=== PATIENT | female | born 1995 | race Caucasian/White ===

== ENCOUNTER 2020-12-30 15:54 | Emergency (ER) | payer SELFPAY ==
[~2020-12-30] VITALS: Ht 165.1 cm; Wt 47.6 kg
[2020-12-30] MEDS ORDERED: ONDANSETRON HCL/PF 4 MG/2 ML VIAL ONE (16:46)
[2020-12-30] MEDS ORDERED: LORAZEPAM INJ 2 MG/ML VIAL ONE (16:47)
[2020-12-30 16:59] LABS: BASOPHILS # (AUTO) 0.1 /CMM (0.0-0.2); BASOPHILS % (AUTO) 0.7 % (0.0-2.0); EOSINOPHILS % (AUTO) 0.6 % (0.0-6.0); HEMATOCRIT 41 % (33-45); HEMOGLOBIN 14.1 g/dL (11.5-14.8); LYMPHOCYTES # (AUTO) 1.6 /CMM (0.8-4.8); LYMPHOCYTES % (AUTO) 19.4 % (20.0-44.0); MEAN CORPUSCULAR HGB CONC 34 g/dl (31.0-36.0); MEAN CORPUSCULAR VOLUME 97 fL (82-100); MONOCYTES # (AUTO) 0.6 /CMM (0.1-1.30); MONOCYTES % (AUTO) 7.8 % (2.0-12.0); NEUTROPHILS # (AUTO) 5.9 /CMM (1.8-8.9); NEUTROPHILS % (AUTO) 71.5 % (43.0-81.0); PLATELET COUNT (AUTO) 357 /CMM (150-450); RED BLOOD CELL COUNT(AUTO) 4.27 MIL/uL (4.0-5.2); WHITE BLOOD COUNT (AUTO) 8.3 K/uL (4.3-11.0)
[2020-12-30] MEDS ORDERED: IV NS 0.9% 1,000 ML BAG IV ONE (17:00)
[2020-12-30] MEDS ORDERED: LORAZEPAM INJ 2 MG/ML VIAL IV ONE (17:00)
[2020-12-30] MEDS ORDERED: ONDANSETRON HCL/PF 4 MG/2 ML VIAL IVP ONE (17:00)
[2020-12-30 17:06] LABS: CALCIUM, SERUM 9.5 mg/dL (8.5-10.1); CREATININE 0.8 mg/dL (0.6-1.3); POTASSIUM 3.5 mmol/L (3.5-5.1)
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
[2020-12-30] MEDS ORDERED: LORA-259 PO (17:58)
[2020-12-30] MEDS ORDERED: ONDA4TAB5 PO (17:58)
--- NOTE | 2020-12-30 18:15 | NUR ---
Patient discharged to home in stable condition. Written and verbal after care instructions given. Patient verbalizes understanding of instruction. IV removed. Catheter intact and site benign. Pressure and 4x4 applied to site. No bleeding noted.
[2020-12-30 18:16] VITALS: BP 130/80
--- NOTE | 2020-12-30 18:16 | NUR ---
[facility] OFFICERS [facility] #[id number] AND #[id number] OF [facility] UN[facility] X84 AT BEDSIDE FOR INVESTIGATION
== END 2020-12-30 18:16 | disposition home or self-care (01) ==
LOC: ER 16:00
DX: F10.239 Alcohol dependence with withdrawal, unspecified (principal); F41.9 Anxiety disorder, unspecified; F32.9 Major depressive disorder, single episode, unspecified; Z88.8 Allergy status to other drugs, medicaments and biological substances; Z79.899 Other long term (current) drug therapy; Y90.9 Presence of alcohol in blood, level not specified
CPT/HCPCS: 36415; 80048; 85025; 96361; 96374; 96375; 99284; J2060; J2405; J7030

== ENCOUNTER 2021-03-18 08:26 | Emergency (ER) | payer OTHER ==
[~2021-03-18] VITALS: Ht 165.1 cm; Wt 63.5 kg
[~2021-03-18 08:26] MED LIST: LORA-259 PO; ONDA4TAB5 PO
--- NOTE | 2021-03-18 08:37 | NUR ---
DR CORTES AT BEDSIDE FOR EVAL.
[2021-03-18] MEDS ORDERED: CHLO25CA22 PO (08:39)
[2021-03-18] MEDS ORDERED: ONDA4TAB5 PO (08:39)
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
[2021-03-18 08:49] VITALS: BP 124/79
== END 2021-03-18 08:50 | disposition home or self-care (01) ==
LOC: ER 08:30
DX: F10.239 Alcohol dependence with withdrawal, unspecified (principal); F41.9 Anxiety disorder, unspecified; F32.9 Major depressive disorder, single episode, unspecified; Z88.8 Allergy status to other drugs, medicaments and biological substances; Z79.899 Other long term (current) drug therapy; Y90.9 Presence of alcohol in blood, level not specified

== ENCOUNTER 2021-03-20 16:14 | Emergency (ER) | payer OTHER ==
[~2021-03-20] VITALS: Ht 154.9 cm; Wt 72.6 kg
[~2021-03-20 16:14] MED LIST changes: +CHLO25CA22 PO
[2021-03-20 16:21] VITALS: BP 131/81
[2021-03-20] MEDS ORDERED: LORAZEPAM 1 MG TABLET ONE (16:37)
[2021-03-20] MEDS ORDERED: LORA-259 PO (16:37)
[2021-03-20] MEDS ORDERED: LORAZEPAM 1 MG TABLET PO ONE (17:00)
== END 2021-03-20 16:50 | disposition home or self-care (01) ==
LOC: ER 16:15
DX: F10.239 Alcohol dependence with withdrawal, unspecified (principal); R25.3 Fasciculation; F41.9 Anxiety disorder, unspecified; F32.9 Major depressive disorder, single episode, unspecified; Z88.8 Allergy status to other drugs, medicaments and biological substances; Z79.899 Other long term (current) drug therapy; Y90.9 Presence of alcohol in blood, level not specified

== ENCOUNTER 2021-06-29 05:32 | Emergency (ER) | payer MEDICAID, OTHER ==
[~2021-06-29] VITALS: Ht 152.4 cm; Wt 52.6 kg
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
[2021-06-29] MEDS ORDERED: ONDANSETRON HCL/PF 4 MG/2 ML VIAL ONE (06:26)
[2021-06-29] MEDS ORDERED: IV NS 0.9% 1,000 ML BAG IV ONE ×2 (06:30→08:30)
[2021-06-29] MEDS ORDERED: ONDANSETRON HCL/PF 4 MG/2 ML VIAL IVP ONE (06:30)
--- NOTE | 2021-06-29 06:40 | NUR ---
URINE COLLECTED AND SENT TO LAB
[2021-06-29 07:42] LABS: BASOPHILS # (AUTO) 0.1 K/uL (0.0-0.2); BASOPHILS % (AUTO) 0.4 % (0.0-2.0); HEMATOCRIT 48 % (33-45); HEMOGLOBIN 15.5 g/dL (11.5-14.8); LYMPHOCYTES # (AUTO) 0.5 K/uL (0.8-4.8); LYMPHOCYTES % (AUTO) 2.5 % (20.0-44.0); MEAN CORPUSCULAR HGB CONC 32 g/dl (31.0-36.0); MEAN CORPUSCULAR VOLUME 106 fL (82-100); MONOCYTES # (AUTO) 0.7 K/uL (0.1-1.30); MONOCYTES % (AUTO) 3.7 % (2.0-12.0); NEUTROPHILS % (AUTO) 93.4 % (43.0-81.0); PLATELET COUNT (AUTO) 330 K/uL (150-450); RED BLOOD CELL COUNT(AUTO) 4.55 MIL/uL (4.0-5.2); WHITE BLOOD COUNT (AUTO) 19.3 K/uL (4.3-11.0)
[2021-06-29 07:54] LABS: BILIRUBIN,URINE NEGATIVE (NEGATIVE); COLOR,URINE YELLOW (YELLOW); LEUKOCYTE ESTERASE ,URINE NEGATIVE (NEGATIVE); NITRITE, URINE NEGATIVE (NEGATIVE); PH,URINE 5.5 (5.0-8.0); PROTEIN,URINE 100 mg/dl (NEGATIVE); UGLUCOSE NEGATIVE (NEGATIVE); UROBILINOGEN,URINE 0.2 EU/dL (0.2)
--- NOTE | 2021-06-29 08:00 | NUR ---
THE PATIENT ALERT AND ORIENTED X4. DENIES PAIN. IN ROOM AIR AND DENIES SOB. RESPIRATION REGULAR AND UNLABORED. THE PATIENT NOTED TO HAVE STABLE GAIT. ATTACHED TO THE MONITOR.
[2021-06-29 08:39] LABS: ALBUMIN 4.5 g/dL (3.4-5.0); BILIRUBIN,DIRECT 0.8 mg/dL (0.0-0.2); BILIRUBIN,TOTAL 1.2 mg/dL (0.2-1.0); CALCIUM, SERUM 9.6 mg/dL (8.5-10.1); CREATININE 1.2 mg/dL (0.6-1.3); POTASSIUM 4.8 mmol/L (3.5-5.1); TOTAL PROTEIN, SERUM 9.1 g/dL (6.4-8.2)
[2021-06-29] MEDS ORDERED: IV NS 0.9% 250 ML IV ONE (08:43)
[2021-06-29] MEDS ORDERED: CT SWABBABLE VALVE TRANS SET 1 EA INFUS.SET MC ONE (08:43)
[2021-06-29] MEDS ORDERED: IOHEXOL-300 100 ML VIAL IV ONE (08:43)
[2021-06-29 08:50] VITALS: BP 131/84
[2021-06-29 09:21] LABS: BACTERIA,URINE Rare /HPF (None Seen); SQUAMOUS EPITHELIAL CELL,UR Few /HPF (None Seen); WBC,URINE 0-2 /HPF (0-3)
--- NOTE | 2021-06-29 09:33 | NUR ---
Patient eloped from facility. Dr Huynh notified.
== END 2021-06-29 09:33 | disposition left against medical advice (07) ==
LOC: ER 05:36
DX: F10.139 Alcohol abuse with withdrawal, unspecified (principal); E87.2 Acidosis; B17.9 Acute viral hepatitis, unspecified; E86.0 Dehydration; F41.9 Anxiety disorder, unspecified; F32.9 Major depressive disorder, single episode, unspecified; Z88.8 Allergy status to other drugs, medicaments and biological substances; Z79.899 Other long term (current) drug therapy; Y90.6 Blood alcohol level of 120-199 mg/100 ml
CPT/HCPCS: 36415; 74177; 80048; 80076; 80307; 80320; 81001; 83690; 84703; 85025; 96361; 96374; 99285; J2405; J7030; J7050; Q9967; G0480

== ENCOUNTER 2021-11-19 09:05 | Emergency (ER) | payer MEDICAID, OTHER ==
[~2021-11-19] VITALS: Ht 154.9 cm; Wt 49.9 kg
--- NOTE | 2021-11-19 10:00 | NUR ---
DR CELIS AT BEDSIDE
[2021-11-19] MEDS ORDERED: ONDANSETRON 4 MG TAB.RAPDIS ONE ×2 (10:07→12:06)
[2021-11-19] MEDS ORDERED: LORAZEPAM 1 MG TABLET ONE (10:07)
[2021-11-19] MEDS: LORAZEPAM 1 MG TABLET PO ONE ×2 (10:10→12:11)
[2021-11-19] MEDS: ONDANSETRON 4 MG TAB.RAPDIS SL ONE ×2 (10:10→12:11)
--- NOTE | 2021-11-19 10:35 | NUR ---
URINE SAMPLE COLLECTED AND SENT TO LAB
[2021-11-19] MEDS ORDERED: LORAZEPAM 0.5 MG TABLET ONE (12:06)
[2021-11-19] MEDS ORDERED: CHLO25CA22 PO (12:29)
--- NOTE | 2021-11-19 12:34 | NUR ---
Patient discharged to home in stable condition. Written and verbal after care instructions given. Patient verbalizes understanding of instruction.
[2021-11-19 12:36] VITALS: BP 110/55
[2021-11-20] MEDS ORDERED: CHLO25CA22 PO (19:07)
== END 2021-11-19 12:34 | disposition home or self-care (01) ==
LOC: ER 09:05
DX: F10.139 Alcohol abuse with withdrawal, unspecified (principal); F41.9 Anxiety disorder, unspecified; F32.9 Major depressive disorder, single episode, unspecified; F12.90 Cannabis use, unspecified, uncomplicated; Z88.8 Allergy status to other drugs, medicaments and biological substances; Z79.899 Other long term (current) drug therapy; Y90.9 Presence of alcohol in blood, level not specified
CPT/HCPCS: 84703; 99284; Q0162 ×2

== ENCOUNTER 2021-11-29 10:14 | Emergency (ER) | payer MEDICAID ==
[~2021-11-29] VITALS: Ht 152.4 cm; Wt 52.2 kg
[2021-11-29] MEDS ORDERED: LORAZEPAM INJ 2 MG/ML VIAL IV ONE (10:30)
[2021-11-29] MEDS ORDERED: ONDANSETRON HCL/PF 4 MG/2 ML VIAL IVP ONE (10:30)
[2021-11-29] MEDS ORDERED: IV NS 0.9% 1,000 ML BAG IV ONE (10:30)
[2021-11-29] MEDS ORDERED: methylPREDNISolone SOD SUCC 125 MG/2ML VIAL IV ONE (10:30)
[2021-11-29] MEDS ORDERED: EPINEPHRINE (1:1000) MDV 30 MG/30ML VIAL SUBCUT ONE (10:30)
[2021-11-29] MEDS ORDERED: FAMOTIDINE/PF INJ 20 MG/2 ML VIAL IV ONE ×2 (10:30→10:33)
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
[2021-11-29] MEDS ORDERED: EPINEPHRINE (1:1000) 1 MG/ML AMPUL ONE (10:32)
[2021-11-29] MEDS ORDERED: methylPREDNISolone SOD SUCC 125 MG/2ML VIAL ONE (10:32)
[2021-11-29] MEDS ORDERED: ONDANSETRON HCL/PF 4 MG/2 ML VIAL ONE (10:32)
[2021-11-29] MEDS ORDERED: LORAZEPAM INJ 2 MG/ML VIAL ONE (10:34)
--- NOTE | 2021-11-29 10:36 | NUR ---
MEDS GIVEN PER MD ORDERS. PT STATES SHE FEELS LIKE HER THROAT IS CLOSING UP ALTHOUGH SHE STATES SHE CAN BREATHE WITHOUT DIFFICULTY. IV FLUIDS INFUSING. PER PT REQUEST, OK'D BY MD PT GIVEN WATER, APPEARS TO HAVE NO DIFFICULTY DRINKING WATER. WILL CONTINUE TO MONITOR.
[2021-11-29 10:50] LABS: BASOPHILS % (AUTO) 0.1 % (0.0-2.0); EOSINOPHILS % (AUTO) 0.3 % (0.0-6.0); HEMATOCRIT 44 % (33-45); HEMOGLOBIN 14.9 g/dL (11.5-14.8); LYMPHOCYTES % (AUTO) 7.4 % (20.0-44.0); MEAN CORPUSCULAR HGB CONC 34 g/dl (31.0-36.0); MEAN CORPUSCULAR VOLUME 97 fL (82-100); MONOCYTES # (AUTO) 0.4 K/uL (0.1-1.30); MONOCYTES % (AUTO) 2.6 % (2.0-12.0); NEUTROPHILS # (AUTO) 12.3 K/uL (1.8-8.9); NEUTROPHILS % (AUTO) 89.6 % (43.0-81.0); PLATELET COUNT (AUTO) 337 K/uL (150-450); RED BLOOD CELL COUNT(AUTO) 4.51 MIL/uL (4.0-5.2); WHITE BLOOD COUNT (AUTO) 13.7 K/uL (4.3-11.0)
[2021-11-29 11:04] LABS: ALBUMIN 3.5 g/dL (3.4-5.0); BILIRUBIN,DIRECT 0.3 mg/dL (0.0-0.2); CALCIUM, SERUM 8.9 mg/dL (8.5-10.1); CREATININE 0.8 mg/dL (0.6-1.3); POTASSIUM 3.3 mmol/L (3.5-5.1); TOTAL PROTEIN, SERUM 7.2 g/dL (6.4-8.2)
--- NOTE | 2021-11-29 11:06 | NUR ---
POST MEDICATION ASSESSMENT. PT APPEARS TO BE CALM, RESTING, STATES SHE ALREADY FEELS A LITTLE BETTER, STATES HER AIRWAY IS OPEN AND DOESN'T FEEL THOUGH IT IS CLOSING ANYMORE. WILL CONTINUE TO MONITOR.
[2021-11-29] MEDS ORDERED: POTASSIUM CHLORIDE 20 MEQ TAB.PRT.SR PO ONE ×2 (11:19→11:30)
[2021-11-29] MEDS ORDERED: EPIN0.3P3 IM (11:34)
[2021-11-29] MEDS ORDERED: PRED20TA PO (11:34)
[2021-11-29] MEDS ORDERED: FAMO-131 PO (11:34)
[2021-11-29] MEDS ORDERED: CETI-90 PO (11:34)
[2021-11-29 11:55] VITALS: BP 118/67
== END 2021-11-29 12:14 | disposition home or self-care (01) ==
LOC: ER 10:25
DX: T78.40XA Allergy, unspecified, initial encounter (principal); L50.0 Allergic urticaria; R25.1 Tremor, unspecified; D72.829 Elevated white blood cell count, unspecified; E87.6 Hypokalemia; F32.9 Major depressive disorder, single episode, unspecified; F41.9 Anxiety disorder, unspecified; Z79.52 Long term (current) use of systemic steroids; Z79.899 Other long term (current) drug therapy; X58.XXXA Exposure to other specified factors, initial encounter
CPT/HCPCS: 36415; 80048; 80076; 85025; 96361; 96372; 96374; 96375; 99284; J0171 ×2; J2060; J2405; J2930; J3490; J7030

== ENCOUNTER 2022-01-14 20:56 | Emergency (ER) | payer MEDICAID, OTHER ==
[~2022-01-14] VITALS: Ht 152.4 cm; Wt 52.2 kg
[~2022-01-14 20:56] MED LIST changes: +CETI-90 PO; +EPIN0.3P3 IM; +FAMO-131 PO; +PRED20TA PO
[2022-01-14 21:50] VITALS: BP 111/68
--- NOTE | 2022-01-14 21:50 | NUR ---
PT BIBSELF C/O ANXIETY ATTACK & ETOH WITHDRAWAL. LAST DRINK WAS 5 DAYS AGO.PT AWAKE AND ALERT, BREATHING EVEN AND UNLABORED, AMBULATORY WITH STEADY GAIT. V/S ASSESSED AND ALL WNL.
[2022-01-14] MEDS ORDERED: ONDANSETRON 4 MG TAB.RAPDIS ONE ×2 (21:58→22:06)
[2022-01-14] MEDS ORDERED: LORAZEPAM 1 MG TABLET ONE ×2 (21:58→22:05)
[2022-01-14] MEDS ORDERED: LORAZEPAM 1 MG TABLET PO ONE (22:00)
[2022-01-14] MEDS ORDERED: ONDANSETRON 4 MG TAB.RAPDIS SL ONE (22:00)
== END 2022-01-14 22:37 | disposition home or self-care (01) ==
LOC: ER 21:04
DX: F41.9 Anxiety disorder, unspecified (principal); F10.139 Alcohol abuse with withdrawal, unspecified; F32.A Depression, unspecified; Z88.8 Allergy status to other drugs, medicaments and biological substances; Z79.52 Long term (current) use of systemic steroids; Z79.899 Other long term (current) drug therapy; Y90.9 Presence of alcohol in blood, level not specified
CPT/HCPCS: 99283; Q0162

== ENCOUNTER 2022-03-18 04:18 | Emergency (ER) | payer OTHER ==
[~2022-03-18] VITALS: Ht 167.6 cm; Wt 66.2 kg
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
--- NOTE | 2022-03-18 04:39 | NUR ---
waiver signed by patient and placed in pt chart
--- NOTE | 2022-03-18 04:50 | NUR ---
PT TAKEN TO CT SCAN
[2022-03-18 07:24] VITALS: BP 118/64
--- NOTE | 2022-03-18 07:24 | NUR ---
Patient discharged to home in stable condition. Written and verbal after care instructions given. Patient verbalizes understanding of instruction.
== END 2022-03-18 07:28 | disposition home or self-care (01) ==
LOC: ER 04:23
DX: S00.83XA Contusion of other part of head, initial encounter (principal); F19.10 Other psychoactive substance abuse, uncomplicated; F41.9 Anxiety disorder, unspecified; F32.A Depression, unspecified; Z88.8 Allergy status to other drugs, medicaments and biological substances; Z79.899 Other long term (current) drug therapy; Y04.2XXA Assault by strike against or bumped into by another person, initial encounter; Y93.89 Activity, other specified; Y92.89 Other specified places as the place of occurrence of the external cause; Y99.8 Other external cause status
CPT/HCPCS: 70450-TC

== ENCOUNTER 2022-04-07 10:33 | Emergency (ER) | payer OTHER ==
[~2022-04-07] VITALS: Ht 152.4 cm; Wt 49.9 kg
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
--- NOTE | 2022-04-07 11:14 | NUR ---
CALLED [employer] NON-EMERGENT LINE AND NOTIFIED BUSINESS MANAGEMENT MANAGER [phone] ABOUT THE PT STATUS. AND WAS NOTIFIED THAT OFFICERS ARE BEING DISPATCHED TO COME
[2022-04-07] MEDS ORDERED: KETOROLAC TROMETHAMINE INJ 30 MG/ML VIAL IM ONE (11:30)
[2022-04-07] MEDS ORDERED: KETOROLAC TROMETHAMINE INJ 30 MG/ML VIAL ONE (11:32)
--- NOTE | 2022-04-07 11:32 | NUR ---
[employer] OFFICERS AT BEDSIDE: OFFICER PETER #[id number] AND OFFICER THUAN #[id number]
--- NOTE | 2022-04-07 11:34 | NUR ---
[facility] OFFICER PETER AT BEDSIDE FOR INVESTIGATION
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
[2022-04-07] MEDS ORDERED: HYDR-4209 PO (12:22)
[2022-04-07] MEDS ORDERED: IBUP-1957 PO (12:22)
[2022-04-07] MEDS ORDERED: LORAZEPAM 0.5 MG TABLET ONE (12:28)
[2022-04-07] MEDS ORDERED: LORAZEPAM 0.5 MG TABLET PO ONE (12:30)
[2022-04-07 13:03] VITALS: BP 102/71
--- NOTE | 2022-04-07 13:03 | NUR ---
Patient discharged to home in stable condition. Written and verbal after care instructions given. Patient verbalizes understanding of instruction.
== END 2022-04-07 13:04 | disposition home or self-care (01) ==
LOC: ER 10:41
DX: S00.12XA Contusion of left eyelid and periocular area, initial encounter (principal); F41.9 Anxiety disorder, unspecified; F32.A Depression, unspecified; Z88.8 Allergy status to other drugs, medicaments and biological substances; Z79.899 Other long term (current) drug therapy; Y04.2XXA Assault by strike against or bumped into by another person, initial encounter; Y93.89 Activity, other specified; Y92.89 Other specified places as the place of occurrence of the external cause; Y99.8 Other external cause status
CPT/HCPCS: 70450; 70486; 96372; 99284; J1885

== ENCOUNTER 2022-04-24 10:07 | Emergency (ER) | payer OTHER ==
[~2022-04-24] VITALS: Ht 160 cm; Wt 49.9 kg
[~2022-04-24 10:07] MED LIST changes: +HYDR-4209 PO; +IBUP-1957 PO
--- NOTE | 2022-04-24 10:28 | NUR ---
BIBS. PT STATED THAT SHE HAD ALCOHOL 2 DAYS AGO, COMPLAINS OF SHAKING, CHILLS, NAUSEA/VOMITING, AND BEING ANXIOUS. PT IS A/O X4, AMBULATORY W/ STEADY GAIT. TO ER BED 15.
--- NOTE | 2022-04-24 10:40 | NUR ---
WARM BLANKET PROVIDED TO PT.
[2022-04-24] MEDS ORDERED: diphenhydrAMINE HCL 50 MG/ML VIAL ONE (11:26)
[2022-04-24] MEDS ORDERED: LORAZEPAM INJ 2 MG/ML VIAL ONE (11:26)
[2022-04-24] MEDS ORDERED: ONDANSETRON HCL/PF 4 MG/2 ML VIAL ONE (11:28)
[2022-04-24] MEDS ORDERED: ONDANSETRON HCL/PF - ER 4 MG/2 ML VIAL IV ONE (11:30)
[2022-04-24] MEDS ORDERED: LORAZEPAM INJ 2 MG/ML VIAL IV ONE (11:30)
[2022-04-24] MEDS ORDERED: IV NS 0.9% 1,000 ML BAG IV ONE (11:30)
[2022-04-24] MEDS ORDERED: diphenhydrAMINE HCL 50 MG/ML VIAL IV ONE (11:30)
--- NOTE | 2022-04-24 11:30 | NUR ---
IV LINE ESTABLISHED ON LAC #18, BLOOD DRAWN AND SENT TO LAB.
[2022-04-24 11:42] LABS: BASOPHILS % (AUTO) 0.4 % (0.0-2.0); EOSINOPHILS % (AUTO) 0.5 % (0.0-6.0); HEMATOCRIT 41 % (33-45); HEMOGLOBIN 13.3 g/dL (11.5-14.8); LYMPHOCYTES # (AUTO) 1.6 K/uL (0.8-4.8); MEAN CORPUSCULAR HGB CONC 33 g/dl (31.0-36.0); MEAN CORPUSCULAR VOLUME 97 fL (82-100); MONOCYTES # (AUTO) 0.5 K/uL (0.1-1.30); MONOCYTES % (AUTO) 6.5 % (2.0-12.0); NEUTROPHILS % (AUTO) 70.6 % (43.0-81.0); PLATELET COUNT (AUTO) 395 K/uL (150-450); RED BLOOD CELL COUNT(AUTO) 4.18 MIL/uL (4.0-5.2); WHITE BLOOD COUNT (AUTO) 7.1 K/uL (4.3-11.0)
[2022-04-24 12:36] LABS: CALCIUM, SERUM 8.9 mg/dL (8.5-10.1); CREATININE 0.8 mg/dL (0.6-1.3); POTASSIUM 3.2 mmol/L (3.5-5.1)
[2022-04-24 12:42] LABS: ALBUMIN 3.2 g/dL (3.4-5.0); BILIRUBIN,DIRECT 0.1 mg/dL (0.0-0.2); BILIRUBIN,TOTAL 0.3 mg/dL (0.2-1.0); TOTAL PROTEIN, SERUM 7.2 g/dL (6.4-8.2)
[2022-04-24 15:46] VITALS: BP 119/74
--- NOTE | 2022-04-24 15:46 | NUR ---
PT REFUSED TO SIGNED DISCHARGE PAPER. PT WAS DISCHARGED IN STABLE CONDITION AND ABLE TO WALK OUT OF THE FACILITY ON HER OWN.
== END 2022-04-24 15:47 | disposition home or self-care (01) ==
LOC: ER 10:09
DX: F10.239 Alcohol dependence with withdrawal, unspecified (principal); F41.9 Anxiety disorder, unspecified; F32.A Depression, unspecified; Z88.8 Allergy status to other drugs, medicaments and biological substances; Z79.899 Other long term (current) drug therapy; Y90.9 Presence of alcohol in blood, level not specified
CPT/HCPCS: 36415; 80048; 80076; 83690; 85025; 96361; 96374; 96375; 99284; J1200; J2060; J2405; J7030

== ENCOUNTER 2022-06-01 20:10 | Emergency (ER) | payer OTHER ==
[~2022-06-01] VITALS: Ht 154.9 cm; Wt 50.8 kg
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
[2022-06-01] MEDS ORDERED: LORA-259 PO (20:56)
--- NOTE | 2022-06-01 21:18 | NUR ---
pt discharged in stable condition. discharge paper work given
[2022-06-01 21:20] VITALS: BP 110/62
== END 2022-06-01 21:20 | disposition home or self-care (01) ==
LOC: ER 20:51
DX: F41.9 Anxiety disorder, unspecified (principal); R20.2 Paresthesia of skin; F32.A Depression, unspecified; Z88.8 Allergy status to other drugs, medicaments and biological substances

== ENCOUNTER 2022-08-07 10:08 | Emergency (ER) | payer OTHER ==
[~2022-08-07] VITALS: Ht 154.9 cm; Wt 49.9 kg
[2022-08-07 12:09] LABS: BASOPHILS % (AUTO) 0.2 % (0.0-2.0); EOSINOPHILS % (AUTO) 0.1 % (0.0-6.0); HEMATOCRIT 45 % (33-45); HEMOGLOBIN 14.6 g/dL (11.5-14.8); LYMPHOCYTES # (AUTO) 1.1 K/uL (0.8-4.8); LYMPHOCYTES % (AUTO) 5.5 % (20.0-44.0); MEAN CORPUSCULAR HGB CONC 32 g/dl (31.0-36.0); MEAN CORPUSCULAR VOLUME 101 fL (82-100); MONOCYTES # (AUTO) 1.3 K/uL (0.1-1.30); MONOCYTES % (AUTO) 6.9 % (2.0-12.0); NEUTROPHILS # (AUTO) 16.7 K/uL (1.8-8.9); NEUTROPHILS % (AUTO) 87.3 % (43.0-81.0); PLATELET COUNT (AUTO) 388 K/uL (150-450); RED BLOOD CELL COUNT(AUTO) 4.45 MIL/uL (4.0-5.2); WHITE BLOOD COUNT (AUTO) 19.1 K/uL (4.3-11.0)
[2022-08-07 12:16] LABS: CALCIUM, SERUM 10.6 mg/dL (8.5-10.1); CREATININE 1.3 mg/dL (0.6-1.3); POTASSIUM 3.7 mmol/L (3.5-5.1)
[2022-08-07 12:22] LABS: ALBUMIN 4.4 g/dL (3.4-5.0); BILIRUBIN,DIRECT 0.5 mg/dL (0.0-0.2); BILIRUBIN,TOTAL 2.5 mg/dL (0.2-1.0); TOTAL PROTEIN, SERUM 9.2 g/dL (6.4-8.2)
[2022-08-07] MEDS ORDERED: ONDANSETRON HCL/PF 4 MG/2 ML VIAL ONE (12:29)
[2022-08-07] MEDS ORDERED: ONDANSETRON HCL/PF 4 MG/2 ML VIAL IV ONE (12:30)
[2022-08-07] MEDS ORDERED: IV NS 0.9% 1,000 ML IV ONE (12:30)
[2022-08-07] MEDS ORDERED: LORAZEPAM INJ 2 MG/ML VIAL IV ONE (12:30)
[2022-08-07] MEDS ORDERED: LORAZEPAM INJ 2 MG/ML VIAL ONE (12:36)
--- NOTE | 2022-08-07 12:40 | NUR ---
safely assisted pt to bed 2
--- NOTE | 2022-08-07 12:45 | NUR ---
IV line started. hooked to monitor
--- NOTE | 2022-08-07 12:48 | NUR ---
medications given as ordered
--- NOTE | 2022-08-07 12:56 | NUR ---
Derrick chandler in [facility] - 08/07/22 at 1257 by DAYA pt. transfered to bed 2
[2022-08-07] MEDS ORDERED: CHLO25CA22 PO (14:53)
[2022-08-07] MEDS ORDERED: ONDA4TAB5 PO (14:53)
--- NOTE | 2022-08-07 15:05 | NUR ---
IV removed. Catheter intact and site benign. Pressure and 4x4 applied to site. No bleeding noted.
--- NOTE | 2022-08-07 15:24 | NUR ---
ICE WATER PROVIDED TO PT REQUESTED; NO COMPLAINT OF NAUSEA/VOMITING AT THIS TIME
[2022-08-07 15:58] VITALS: BP 122/74
--- NOTE | 2022-08-07 16:08 | NUR ---
Patient discharged to home in stable condition. Written and verbal after care instructions given. Patient verbalizes understanding of instruction.
== END 2022-08-07 16:09 | disposition home or self-care (01) ==
LOC: ER 10:34
DX: S00.01XA Abrasion of scalp, initial encounter (principal); F10.239 Alcohol dependence with withdrawal, unspecified; K70.9 Alcoholic liver disease, unspecified; D72.829 Elevated white blood cell count, unspecified; F41.9 Anxiety disorder, unspecified; F32.A Depression, unspecified; Z88.8 Allergy status to other drugs, medicaments and biological substances; Z79.899 Other long term (current) drug therapy; W01.0XXA Fall on same level from slipping, tripping and stumbling without subsequent striking against object, initial encounter; Y93.89 Activity, other specified; Y92.89 Other specified places as the place of occurrence of the external cause; Y99.8 Other external cause status; Y90.0 Blood alcohol level of less than 20 mg/100 ml
CPT/HCPCS: 99285; 96374; 96361; 96375; 93005; 71045; 85025; 80048; 80076; 36415; 82962; 80320; J2060; J2405; J7030; G0480

== ENCOUNTER 2022-08-11 19:21 | Inpatient (IN) | payer OTHER ==
[~2022-08-11] VITALS: Ht 152.4 cm; Wt 49.9 kg
[2022-08-11] MEDS ORDERED: LORAZEPAM INJ 2 MG/ML VIAL IV ONE (20:00)
[2022-08-11 20:07] LABS: BASOPHILS % (AUTO) 0.2 % (0.0-2.0); EOSINOPHILS % (AUTO) 0.1 % (0.0-6.0); HEMATOCRIT 37 % (33-45); HEMOGLOBIN 12.8 g/dL (11.5-14.8); LYMPHOCYTES % (AUTO) 8.8 % (20.0-44.0); MEAN CORPUSCULAR HGB CONC 34 g/dl (31.0-36.0); MEAN CORPUSCULAR VOLUME 97 fL (82-100); MONOCYTES # (AUTO) 0.5 K/uL (0.1-1.30); MONOCYTES % (AUTO) 4.1 % (2.0-12.0); NEUTROPHILS % (AUTO) 86.8 % (43.0-81.0); PLATELET COUNT (AUTO) 377 K/uL (150-450); RED BLOOD CELL COUNT(AUTO) 3.84 MIL/uL (4.0-5.2); WHITE BLOOD COUNT (AUTO) 11.5 K/uL (4.3-11.0)
--- NOTE | 2022-08-11 20:20 | NUR ---
SEEN BY DR PATEL AT BEDSIDE
[2022-08-11] MEDS ORDERED: LORAZEPAM INJ 2 MG/ML VIAL ONE (20:22)
[2022-08-11] MEDS ORDERED: MORPHINE SULFATE INJ 2 MG/ML DISP.SYRIN IV ONE ×2 (20:30→23:30)
--- NOTE | 2022-08-11 20:51 | NUR ---
IV CANNULA INSERTED ON LEFT AC G20. MEDS GIVEN
[2022-08-11 20:54] LABS: ALBUMIN 3.2 g/dL (3.4-5.0); BILIRUBIN,DIRECT 0.2 mg/dL (0.0-0.2); BILIRUBIN,TOTAL 0.4 mg/dL (0.2-1.0); CALCIUM, SERUM 8.5 mg/dL (8.5-10.1); CREATININE 0.7 mg/dL (0.6-1.3); POTASSIUM 3.5 mmol/L (3.5-5.1); TOTAL PROTEIN, SERUM 7.2 g/dL (6.4-8.2)
[2022-08-11] MEDS ORDERED: MORPHINE SULFATE INJ 4 MG/ML DISP.SYRIN ONE ×2 (20:54→23:53)
[2022-08-11] MEDS ORDERED: ONDANSETRON HCL/PF 4 MG/2 ML VIAL ONE (20:54)
[2022-08-11] MEDS ORDERED: ONDANSETRON HCL/PF 4 MG/2 ML VIAL IV ONE (21:00)
[2022-08-11] MEDS ORDERED: IV NS 0.9% 1,000 ML IV ONE (21:30)
--- NOTE | 2022-08-11 21:48 | NUR ---
DISCLAIMER SIGNED THAT SHE IS NOT . GLORIA OHARA MADE AWARE
--- NOTE | 2022-08-11 22:10 | NUR ---
BROUGHT TO CT DEPT
--- NOTE | 2022-08-11 23:09 | NUR ---
DR. JORGE GEORGE ON PHONE CALL WITH DR. ORTIZ RADIOLOGY
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
--- NOTE | 2022-08-12 00:10 | NUR ---
[employer] AT BEDSIDE
--- NOTE | 2022-08-12 01:25 | NUR ---
CLINICAL INFORMATION RELAYED TO MICHOACANO SHOP SUPERINTENDENT. PT IS AUTHORIZED TO STAY. VERBAL AUTH GIVEN
--- NOTE | 2022-08-12 01:25 | NUR ---
COVID SWAB DONE
--- NOTE | 2022-08-12 02:15 | NUR ---
URINE SPECIMEN SENT TO LAB
--- NOTE | 2022-08-12 02:17 | NUR ---
PT TAKEN TO CT VIA RADHA
--- NOTE | 2022-08-12 02:23 | NUR ---
BROUGHT PT TO CT DEPT
[2022-08-12 02:44] LABS: BILIRUBIN,URINE NEGATIVE (NEGATIVE); COLOR,URINE DARK YELLOW (YELLOW); LEUKOCYTE ESTERASE ,URINE NEGATIVE (NEGATIVE); NITRITE, URINE NEGATIVE (NEGATIVE); PROTEIN,URINE TRACE mg/dl (NEGATIVE); UGLUCOSE NEGATIVE (NEGATIVE); UROBILINOGEN,URINE 0.2 EU/dL (0.2)
--- NOTE | 2022-08-12 03:08 | NUR ---
PATIENT IS ASLEEP
[2022-08-12] MEDS ORDERED: MAGNESIUM HYDROXIDE 30 ML UDC PO PRN (03:30)
[2022-08-12] MEDS ORDERED: MAG HYDROX/AL HYDROX/SIMETH 30 ML UDC PO PRN (03:30)
[2022-08-12] MEDS ORDERED: Z GUARD REMEDY 4 OZ OINT TP PRN (03:30)
--- NOTE | 2022-08-12 04:45 | NUR ---
RELAYED TO EDDIE GOLDSTEIN THAT PT IS ASKING FOR ATIVAN TO HELP CONTROL HER ALCOHOL WITHDRAWAL. EXPLAINED TO PATIENT THAT ATIVAN USUALLY NOT GIVEN TO PATIENT WITH BRAIN BLEED COZ WE DONT KNOW IF A PATIENT BECAME DROWSY IS DUE TO MEDICATION OR THE BLEED. PER EDDIE GOLDSTEIN, ATIVAN WILL NOT BE ORDERED FOR PT CAUSE PATIENT IS UNDER MONITORING.
[2022-08-12 05:50] LABS: BASOPHILS % (AUTO) 0.2 % (0.0-2.0); EOSINOPHILS % (AUTO) 0.5 % (0.0-6.0); HEMATOCRIT 36 % (33-45); HEMOGLOBIN 12.3 g/dL (11.5-14.8); LYMPHOCYTES # (AUTO) 1.2 K/uL (0.8-4.8); LYMPHOCYTES % (AUTO) 16.1 % (20.0-44.0); MEAN CORPUSCULAR HGB CONC 34 g/dl (31.0-36.0); MEAN CORPUSCULAR VOLUME 98 fL (82-100); MONOCYTES # (AUTO) 0.7 K/uL (0.1-1.30); MONOCYTES % (AUTO) 8.7 % (2.0-12.0); NEUTROPHILS # (AUTO) 5.6 K/uL (1.8-8.9); NEUTROPHILS % (AUTO) 74.5 % (43.0-81.0); PLATELET COUNT (AUTO) 363 K/uL (150-450); RED BLOOD CELL COUNT(AUTO) 3.68 MIL/uL (4.0-5.2); WHITE BLOOD COUNT (AUTO) 7.6 K/uL (4.3-11.0)
[2022-08-12 06:13] LABS: BILIRUBIN,TOTAL 0.5 mg/dL (0.2-1.0); CALCIUM, SERUM 8.2 mg/dL (8.5-10.1); CREATININE 0.5 mg/dL (0.6-1.3); MAGNESIUM 1.9 mg/dL (1.8-2.4); PHOSPHORUS 2.9 mg/dL (2.5-4.9); POTASSIUM 3.6 mmol/L (3.5-5.1); TOTAL PROTEIN, SERUM 6.7 g/dL (6.4-8.2)
[2022-08-12 06:21] LABS: THYROID STIMULATING HORMONE 0.087 uIU/mL (0.358-3.74)
[2022-08-12 06:26] LABS: BACTERIA,URINE Few /HPF (None Seen); RBC,URINE 21-50 /HPF (0-2); WBC,URINE 21-50 /HPF (0-3)
--- NOTE | 2022-08-12 07:15 | NUR ---
RECEIVED PT FROM RAYMOND WRIGHT pt aslepy no distress
--- NOTE | 2022-08-12 07:56 | NUR ---
bed assigned 106
[2022-08-12 08:00] VITALS: BP 139/77
--- NOTE | 2022-08-12 08:00 | NUR ---
PT REPORT GIVEN TO KYLE IVY
[2022-08-12] MEDS ORDERED: ALPR1TAB2 PO (08:13)
--- NOTE | 2022-08-12 08:27 | NUR ---
PT TRANSFERRED TO 106 VIA GURNEY. WARM HANDOFF GIVEN TO RN ASSIGNED.
[2022-08-12] MEDS: ONDANSETRON HCL/PF 4 MG/2 ML VIAL IVP PRN (08:49)
[2022-08-12] MEDS: PANTOPRAZOLE 40 MG VIAL IV SCH (08:49)
[2022-08-12] MEDS: IV D5W 1,000 ML IV PRN (08:56)
[2022-08-12] MEDS: CEFTRIAXONE 1 G in IV D5W 50 ML IV SCH (09:33)
[2022-08-12] MEDS: HYDROCODONE/APAP 5/325MG TABLET PO PRN ×3 (10:15→22:05)
[2022-08-12] MEDS ORDERED: Thiamine 100 MG in IV D5W 50 ML IV SCH (11:00)
[2022-08-12] MEDS ORDERED: Folic acid 1 MG in IV D5W 50 ML IV SCH (11:00)
--- NOTE | 2022-08-12 11:11 | NUR ---
RN NOTE PT REFUSING TELE BOX AT THIS TIME. BENEFIT OF MONITORING EXPLAINED, PT VERBALIZES UNDERSTANDING
--- NOTE | 2022-08-12 11:12 | NUR ---
RN NOTE REQUESTED PAIN MEDICATION AND ATIVAN PER PT REQUEST TO DR. LUIS. NORCO PO ORDERED, NO ATIVAN. PT REQUEST TO TALK TO DR. LUIS REGARDING HER MEDICATION AND HER ATIVAN DUE TO HER WITHDRAWAL SYMPTOMS. NO RESPONSE FROM DR. LUIS AT THIS TIME.
--- NOTE | 2022-08-12 11:43 | NUR ---
RN NOTE PT REQUEST TO HOLD IVF FOR NOW, REQUEST TO TALK TO STAT. DR. LUIS NOTIFIED
--- NOTE | 2022-08-12 11:58 | NUR ---
RN NOTE PT AGITATED, RESTLESS, REQUESTING ATIVAN TO HELP WITH HER WITHDRAWAL SYMPTOMS AND ANXIETY. DR. LUIS NOTIFIED, NO ANSWER.
[2022-08-12 12:00] VITALS: BP 119/70
--- NOTE | 2022-08-12 12:27 | NUR ---
RN NOTE DR. LUIS CALLED, NO ANSWER. PT VERY AGITATED, CONTINUES TO REFUSE TELE BOX AND IVF
[2022-08-12] MEDS: LORAZEPAM INJ 2 MG/ML VIAL IV PRN ×2 (12:47→18:47)
--- NOTE | 2022-08-12 12:57 | NUR ---
RN NOTE MD TALKED TO PT. PT AGREEING ON IVF AND IVPB, ATIVAN 0.5MG IVP GIVEN FOR HER ANXIETY AND AGITATION.
[2022-08-12] MEDS ORDERED: LORAZEPAM 0.5 MG TABLET PO PRN (13:00)
[2022-08-12 16:00] VITALS: BP 118/60
--- NOTE | 2022-08-12 16:30 | NUR ---
RN NOTE IV DISLODGE, NEW IV 22G PLACED ON LEFT AC. PT REPORTING SEVERE HEADACHE, NORCO PO GIVEN.
[2022-08-12 20:00] VITALS: BP 119/75
--- NOTE | 2022-08-12 20:00 | NUR ---
ms rr notes Recieved pts a/ox4 ambulatory , able to make needs known on room air sating 96% no sob no distress noted v/s stable afebrile .On d5 water at 75cc/hr infusing well , all needs attended too . will continue to monitor pts.kept pts comfortable .
[2022-08-12] MEDS ORDERED: diphenhydrAMINE HCL 50 MG CAPSULE PO PRN (23:30)
--- NOTE | 2022-08-12 23:33 | NUR ---
ms rn notes pts complain of itching relayed with liz rawls with order benadryl 50 mg via poq 8hrs prn for itching. order noted and carried out.
[2022-08-12] MEDS ORDERED: diphenhydrAMINE HCL 25 MG CAPSULE ONE (23:41)
[2022-08-13] MEDS: LORAZEPAM INJ 2 MG/ML VIAL IV PRN ×4 (00:19→22:04)
[2022-08-13] MEDS: IV D5W 1,000 ML IV PRN ×2 (02:04→14:04)
[2022-08-13 04:00] VITALS: BP 120/75
[2022-08-13] MEDS: HYDROCODONE/APAP 5/325MG TABLET PO PRN ×3 (04:42→23:13)
--- NOTE | 2022-08-13 06:43 | NUR ---
RN CLOSING NOTE PT IN BED AWAKE, ALERT AND ORIENTED X 4 ambulatory.ON ROOM AIR,TOLERATING AT 97%. ALL NEEDS attended too PT HAS right AC G22 intact and PATENT AND FLUSHING WELL remain on [id number] at 75cc/hr on progress . ALL SAFETY PRECAUTIONS IN PLACE. BED IS LOCKED IN LOWEST POSITION, 2 SIDE RAILS UP,BED ALARM ON. CALL LIGHT WITHIN REACH will endorse to rn day shift for continuity of care.
--- NOTE | 2022-08-13 07:30 | NUR ---
RN OPENING NOTE PT ALERT AND ORIENTED X4.PT IS MED SURG STATUS. PATIENT IS AMBULATORY. PT ABLE TO MAKE NEEDS KNOWN.PATIENT HAS LAC 22 GAUGE, INTACT, PATENT AND FLUSHING WELL. PT ON ROOM AIR AT 98%. ALL SAFETY MEASURES IN PLACE. CALL LIGHT WITHIN REACH. BED LOCKED AT LOWEST POSITION. SIDE RAILS UP X2.
--- NOTE | 2022-08-13 07:35 | NUR ---
RN NOTE PT IS ANXIOUS ATIVAN GIVEN PRN. PT REPORTED GOING THROUGH ALCOHOL WITHDRAWAL
[2022-08-13 08:00] VITALS: BP 113/69
[2022-08-13] MEDS: PANTOPRAZOLE 40 MG VIAL IV SCH (08:45)
[2022-08-13] MEDS: FOLIC ACID 1 MG TABLET PO SCH (08:45)
[2022-08-13] MEDS: CEFTRIAXONE 1 G in IV D5W 50 ML IV SCH (08:45)
[2022-08-13] MEDS: THIAMINE HCL 100 MG TABLET PO SCH (08:45)
--- NOTE | 2022-08-13 10:00 | NUR ---
RN NOTE NOTIFIED THAT PT WANTS ATIVAN TO BE INCREASED TO 1MG AND THAT HOMER ISNT HELPING. ASKED DR. QIU IF PT CAN BE ORDERED DIFFERENT MEDICATION. WILL FOLLOW UP Addendum: 08/13/22 at 1333 by ALESSIA NUNES RN spoke with Dr. Qiu, wants to keep it at 0.5 mg Ativan.
--- NOTE | 2022-08-13 10:48 | NUR ---
PT COMPLAINS OF SEVERE HEAD PAIN. NORCO GIVEN PRN.
--- NOTE | 2022-08-13 13:33 | NUR ---
rn note notified if pt can be referred to psychiatrist due to pt high level of anxiety. dr. mina conklin Addendum: 08/13/22 at 1339 by ALESSIA NUNES RN margarette conklin for referral for social media project manager
[2022-08-13] MEDS ORDERED: ALPRAZOLAM 1 MG TABLET PO SCH (15:30)
[2022-08-13 16:00] VITALS: BP 111/70
[2022-08-13] MEDS: ALPRAZOLAM 1 MG TABLET PO SCH (17:32)
--- NOTE | 2022-08-13 19:30 | NUR ---
MS RN OPENING NOTE RECEIVED PT IN BED AWAKE, ON RA, TOLERATING WELL, NO S/S OF ACUTE DISTRESS. IV ACCESS ON LAC #22G, RUNNING D5W @75ML/HR. PT AMBULATORY. PT ABLE TO MAKE NEEDS KNOWN. ALL SAFETY MEASURES IN PLACE. BED IN LOWEST POSITION AND LOCKED. BED RAILS UP X2, CALL LIGHT WITH IN REACH BED ALARM ON. WILL CONTINUE TO MONITOR THROUGHOUT SHIFT.
[2022-08-13 20:00] VITALS: BP 99/64
--- NOTE | 2022-08-13 20:02 | NUR ---
RN CLOSING NOTE PT ALERT AND ORIENTED X4.PT IS MED SURG STATUS. PATIENT IS AMBULATORY. PT ABLE TO MAKE NEEDS KNOWN.PT HAS HIGH ANXIETY. ATIVAN, NORCO AND XANAX GIVEN THROUGHOUT SHIFT DUE TO PAIN AND ANXIETY PRN. PT VERBALLY RESPONSIVE. PATIENT HAS LAC 22 GAUGE, INTACT, PATENT AND FLUSHING WELL. HAS FLUIDS RUNNING. PT ON ROOM AIR AT 96%. ALL SAFETY MEASURES IN PLACE. CALL LIGHT WITHIN REACH. BED LOCKED AT LOWEST POSITION. SIDE RAILS UP X2.
[2022-08-14 04:00] VITALS: BP 110/61
[2022-08-14] MEDS: LORAZEPAM INJ 2 MG/ML VIAL IV PRN ×3 (04:13→22:27)
[2022-08-14] MEDS: IV D5W 1,000 ML IV PRN ×2 (06:09→15:43)
--- NOTE | 2022-08-14 07:00 | NUR ---
MS RN CLOSING NOTE PT IN BED ASLEEP, ON RA, TOLERATING WELL, NO S/S OF ACUTE DISTRESS. IV ACCESS ON LAC #22G, RUNNING D5W @75ML/HR. PT AMBULATORY. PT ABLE TO MAKE NEEDS KNOWN.ALL DUE MEDS GIVEN. ALL SAFETY MEASURES IN PLACE. BED IN LOWEST POSITION AND LOCKED. BED RAILS UP X2, CALL LIGHT WITH IN REACH BED ALARM ON. WILL ENDORSE TO MORNING SHIFT.
[2022-08-14 07:13] LABS: CALCIUM, SERUM 8.6 mg/dL (8.5-10.1); CREATININE 0.6 mg/dL (0.6-1.3); POTASSIUM 3.3 mmol/L (3.5-5.1)
--- NOTE | 2022-08-14 07:25 | NUR ---
RN OPENING NOTE PT ALERT AND ORIENTED X4.PT IS MED SURG STATUS. PATIENT IS AMBULATORY. PT ABLE TO MAKE NEEDS KNOWN.PT HAS HIGH ANXIETY.PATIENT HAS LAC 22 GAUGE, INTACT, PATENT AND FLUSHING WELL. RUNNING D5W RUNNING AT 75 ML/HR. PT ON ROOM AIR AT ABOVE 95%%. ALL SAFETY MEASURES IN PLACE. CALL LIGHT WITHIN REACH. BED LOCKED AT LOWEST POSITION. SIDE RAILS UP X2.
[2022-08-14] MEDS: PANTOPRAZOLE 40 MG TABLET.DR PO SCH (07:43)
[2022-08-14] MEDS: HYDROCODONE/APAP 5/325MG TABLET PO PRN ×3 (07:43→21:05)
[2022-08-14 08:00] VITALS: BP 132/77
[2022-08-14] MEDS: ALPRAZOLAM 1 MG TABLET PO SCH ×2 (08:23→17:41)
[2022-08-14] MEDS: FOLIC ACID 1 MG TABLET PO SCH (08:23)
[2022-08-14] MEDS: CEFTRIAXONE 1 G in IV D5W 50 ML IV SCH (08:23)
[2022-08-14] MEDS: THIAMINE HCL 100 MG TABLET PO SCH (08:23)
--- NOTE | 2022-08-14 08:44 | NUR ---
rn note gave update to pt mom.
--- NOTE | 2022-08-14 08:45 | NUR ---
rn note pt says silver isnt helping her and wants morphine and complaining of pain in the back of head. her potassium is 3.3 and pts mom would like to speak with dr. enriquez regarding ct results
--- NOTE | 2022-08-14 09:00 | NUR ---
rn note notified dr. enriquez of requests for increase dose of pain
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
[2022-08-14] MEDS: ONDANSETRON HCL/PF 4 MG/2 ML VIAL IVP PRN (10:49)
[2022-08-14] MEDS ORDERED: POTASSIUM CHLORIDE 20 MEQ TAB.PRT.SR PO ONE (12:00)
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
--- NOTE | 2022-08-14 13:00 | NUR ---
rn note gave brief update to pt friend. okay with patient to give update to friend
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
--- NOTE | 2022-08-14 13:30 | NUR ---
RN NOTE adjusted the frequency of norco to every 4 hours. pt has unbearable throbbing head pain.
[2022-08-14] MEDS: SODIUM CHLORIDE 1000 MG TABLET PO SCH (14:27)
[2022-08-14 16:00] VITALS: BP 109/58
[2022-08-14 20:00] VITALS: BP 110/59
--- NOTE | 2022-08-14 20:04 | NUR ---
RN CLOSING NOTE PT ALERT AND ORIENTED X4.PT IS MED SURG STATUS. PATIENT IS AMBULATORY. PT ABLE TO MAKE NEEDS KNOWN.PT HAS HIGH ANXIETY.ALL PRN MEDICATIONS GIVEN TO PATIENT REQUESTED DUE TO SEVERE HEAD PAIN AND ANXIETY. PATIENT HAS LAC 22 GAUGE, INTACT, PATENT AND FLUSHING WELL. RUNNING D5W RUNNING AT 75 ML/HR. PT ON ROOM AIR AT ABOVE 95%%. ALL SAFETY MEASURES IN PLACE. CALL LIGHT WITHIN REACH. BED LOCKED AT LOWEST POSITION. SIDE RAILS UP X2.
[2022-08-15] VITALS: BP 111/56
[2022-08-15] MEDS: HYDROCODONE/APAP 5/325MG TABLET PO PRN ×5 (01:07→22:02)
--- NOTE | 2022-08-15 02:03 | NUR ---
Patient c/o pounding headache, stating that [place] is not helping, informed Mavis that she is taking [place] around the clock, plus she has Ativan x1 already, and Xanax bid, per Mavis, no new orders at this time.
[2022-08-15 04:00] VITALS: BP 107/70
[2022-08-15] MEDS: LORAZEPAM INJ 2 MG/ML VIAL IV PRN ×2 (05:18→18:25)
--- NOTE | 2022-08-15 06:38 | NUR ---
END OF SHIFT, PATIENT IN BED, A/O X4, AT ROOM AIR, NO SOB/ACUTE DISTRESS, VITAL SINGS STABLE, CONTINUE ON IV ATB AND IVF ORDERED, OTHERWISE NO SIGNIFICANT CHANGE IN CONDITION DURING THE NIGHT, CONTINUE ON PAIN MANAGEMENT, MARITZA GOLDSTEIN NO ADDITIONAL PAIN MEDICATION, ATIVAN PRN ADMINISTERED WELL, NO NEUROLOGICAL CHANGE DURING THE NIGHT, NO ALOC OR ABNORMALITY NOTED, WILL ENDORSE CONTINUITY OF CARE TO ONCOMING NURSE
[2022-08-15 06:57] LABS: CALCIUM, SERUM 8.4 mg/dL (8.5-10.1); CREATININE 0.5 mg/dL (0.6-1.3)
--- NOTE | 2022-08-15 07:15 | NUR ---
MS RN NOTE PATIENT IN BED .ALL NEEDS ATTENDED, ALERT ,ORIENTED, LT AC HL INTACT AND FLESHED WELL ON RA,NO SOB NOTED ON IVF ORDERED BED IN LOWEST AND LOCKED POSITION ,CALL LIGHT WITHIN REACH , SAFETY MEASURE IMPLEMENTED, WILL CONT TO MONITOR
[2022-08-15 07:32] LABS: POTASSIUM 3.2 mmol/L (3.5-5.1)
[2022-08-15] MEDS: PANTOPRAZOLE 40 MG TABLET.DR PO SCH (07:32)
--- NOTE | 2022-08-15 07:52 | NUR ---
RN NOTES SODIUM LEVEL NOTED 118, INFORMED Nancy BEATTY MD, WITH NEW ORDER TO STOP IV D5W NOTED AND CARRIED OUT. WILL CONTINUE PLAN OF CARE FOR THE PATIENT.
[2022-08-15 08:00] VITALS: BP 115/75
[2022-08-15] MEDS: CEFTRIAXONE 1 G in IV D5W 50 ML IV SCH (08:06)
[2022-08-15] MEDS: FOLIC ACID 1 MG TABLET PO SCH (08:06)
[2022-08-15] MEDS: THIAMINE HCL 100 MG TABLET PO SCH (08:06)
[2022-08-15] MEDS: SODIUM CHLORIDE 1000 MG TABLET PO SCH (08:06)
[2022-08-15] MEDS: ALPRAZOLAM 1 MG TABLET PO SCH ×2 (08:06→16:07)
[2022-08-15] MEDS: ONDANSETRON HCL/PF 4 MG/2 ML VIAL IVP PRN (08:07)
--- NOTE | 2022-08-15 10:42 | NUR ---
telegraph plant maintainer note rounds made . able to to br all needs attended call light within reach will monitor
[2022-08-15] MEDS ORDERED: POTASSIUM CHLORIDE 20 MEQ TAB.PRT.SR PO ONE (11:00)
--- NOTE | 2022-08-15 12:31 | NUR ---
MS RN NOTE DR LUIS WILL SPEAK WITH FAMILY ,MOTHER OF PATIENT, PHONE NUMBER GIVEN ,ASKED DR TO GIVE STRONGER MEDICATION FOR PAIN PER PATIENT REQUEST , DR LUIS SAY CONT NORCO ORDERED WILL F\U, ALSO AWARE THAT NA 118 WILL RESTRICT WATER 1.5L PER DAY PER DR LUIS ORDER
--- NOTE | 2022-08-15 15:09 | NUR ---
RN NOTES INFORMED KEYONA PSYCHIATRIST PATIENT ON IV PRN ATIVAN AND XANAX PO, PER MD CONTINUE. WILL CONTINUE PLAN OF CARE OF THE PATIENT.
[2022-08-15 16:00] VITALS: BP 103/61
--- NOTE | 2022-08-15 16:19 | NUR ---
MS RN NOTE UA COLLECTED ORDERED ,KEEP CLEAN DRY
[2022-08-15 16:34] LABS: CREATININE, URINE 195.5 MG/DL (30.0-125.0)
--- NOTE | 2022-08-15 18:39 | NUR ---
RN CLOSING NOTE PT ALERT AND ORIENTED X4, BF AT THE BEDSIDE, PATIENT IS AMBULATORY. PT ABLE TO MAKE NEEDS KNOWN. PT HAS HIGH ANXIETY, PRN ATIVAN GIVEN. KT=860/61 HR=69. LAC PERIPHERAL IV LINE 22 GAUGE, INTACT, PATENT AND FLUSHING WELL. PT ON ROOM AIR SATING @99 %. ALL SAFETY MEASURES IN PLACE. CALL LIGHT WITHIN REACH. BED LOCKED AT LOWEST POSITION. SIDE RAILS UP X2. WILL ENDORSE TO PHOTO OFFSET PRINTER NURSE FOR PANTERA.
[2022-08-15 20:00] VITALS: BP 100/63
[2022-08-16] MEDS: LORAZEPAM INJ 2 MG/ML VIAL IV PRN ×3 (00:54→20:52)
[2022-08-16] MEDS: HYDROCODONE/APAP 5/325MG TABLET PO PRN ×3 (03:06→22:53)
[2022-08-16 04:00] VITALS: BP 105/60
--- NOTE | 2022-08-16 06:31 | NUR ---
END OF SHIFT, PATIENT IN BED, A/O X4, AT ROOM AIR, NO SOB/ACUTE DISTRESS, VITAL SINGS STABLE THROUGHOUT THE NIGHT, MS STATUS, OTHERWISE NO SIGNIFICANT CHANGE IN CONDITION DURING THE NIGHT, CONTINUE ON PAIN MANAGEMENT, ATIVAN PRN ADMINISTERED WELL, NO NEUROLOGICAL CHANGE DURING THE NIGHT, NO ALOC OR ABNORMALITY NOTED, WILL ENDORSE CONTINUITY OF CARE TO ONCOMING NURSE
--- NOTE | 2022-08-16 07:30 | NUR ---
RN NOTE RECEIVED PATIENT IN BED RESTING ALERT ORIENTEDX4 VERBALLY RESPONSIVE ON ROOM AIR O2;98% AMBULATORY,IV SITE IS ON LEFT FOREARM,CONTIENT BOWEL/BLADDER SAFETY MEASURE IMPLEMENT BED IN LOW POSITON AND LOCKED,CALL LIGHT WITHIN REACH,HEAD OF THE BED ELEVATED CONTINUE TO MONITOR.
[2022-08-16] MEDS: PANTOPRAZOLE 40 MG TABLET.DR PO SCH (07:35)
[2022-08-16] MEDS: SODIUM CHLORIDE 1000 MG TABLET PO SCH (08:00)
[2022-08-16] MEDS: FOLIC ACID 1 MG TABLET PO SCH (08:01)
[2022-08-16] MEDS: CEFTRIAXONE 1 G in IV D5W 50 ML IV SCH (08:01)
[2022-08-16] MEDS: ALPRAZOLAM 1 MG TABLET PO SCH ×2 (08:01→17:54)
[2022-08-16] MEDS: THIAMINE HCL 100 MG TABLET PO SCH (08:01)
[2022-08-16 08:05] LABS: CALCIUM, SERUM 8.2 mg/dL (8.5-10.1); CREATININE 0.6 mg/dL (0.6-1.3); POTASSIUM 4.4 mmol/L (3.5-5.1)
[2022-08-16] MEDS: ONDANSETRON HCL/PF 4 MG/2 ML VIAL IVP PRN ×2 (08:07→18:14)
[2022-08-16] MEDS ORDERED: IV Sodium Chloride 3% 500 ML 500 ML IV ONE (10:00)
--- NOTE | 2022-08-16 10:01 | NUR ---
RN NOTE SODIUM [address] BEATTY WITH NEW ORDER NS 3% 500CC 75CC/HR AFTER 300CC CHECK BMP NOTED AND CARRIED OUT
[2022-08-16 12:00] VITALS: BP 101/58
--- NOTE | 2022-08-16 12:25 | NUR ---
RN NOTE ATIVAN 0.5MG/0.25ML GIVEN FOR ANXIETY PATIENT REQUESTED,CONTINUE TO MONITOR.
--- NOTE | 2022-08-16 13:00 | NUR ---
RN NOTE IV SITE IS INFILTRATED START A NEW IV LINE IN RIGHT FOREARM #22 WITH GOOD BLOOD RETURN,AND NO INFILTRATION,CONTINUE TO MONITOR.
--- NOTE | 2022-08-16 15:23 | NUR ---
RN NOTE SODIUM IS [address] BEATTY,HE ORDERED COMPLETE [id number] NS 0.3% BMP AT 2000 NOTED AND CARRIED OUT.
--- NOTE | 2022-08-16 15:34 | NUR ---
RN NOTE NORCO 5-325 MG PRN GIVEN FOR PAIN 04/30 CONTINUE TO MONITOR.
[2022-08-16 15:44] LABS: CALCIUM, SERUM 8.1 mg/dL (8.5-10.1); CREATININE 0.7 mg/dL (0.6-1.3); POTASSIUM 4.1 mmol/L (3.5-5.1)
--- NOTE | 2022-08-16 17:04 | NUR ---
SS Note: Per pt.'s request JENNIFER provided pt. with verification of admission letter to dismiss her from the court hearing she has scheduled 08/17/2022.
--- NOTE | 2022-08-16 18:40 | NUR ---
RN NOTE PATIENT REMAINS ALERT ORIENTED X4 VERBALLY RESPONSIVE,ON ROOM AIR O2:100% IV SITE IS ON RIGHT FOREARM INTACT PATENT,AMBULATORY,CONTIENT BOWEL/BLADDER,ALL DUE MED GIVEN MD ORDERED,KEPT HEAD OF THE BED ELEVATED ALL THE TIME,KEPT COMFORTABLE,BMP LAB AT 2000.WILL ENDORSE NEXT COMING SHIFT FOR CONTINUATION OF CARE.
--- NOTE | 2022-08-16 19:54 | NUR ---
RN NOTE RECEIVED PT AWAKE, ALERT AND ORIENTED. WITH A VISITOR AT BEDSIDE. COMPLAINED OF MILD HEADACHE, BEARABLE. LAC IV PATENT AND INTACT. PT ON FLUID RESTRICTION, PT AWARE. ALL SAFETY MEASURES IN PLACE. WILL CONTINUE TO MONITOR.
[2022-08-16 20:00] VITALS: BP 106/58
[2022-08-16 20:27] LABS: CALCIUM, SERUM 8.3 mg/dL (8.5-10.1); CREATININE 0.8 mg/dL (0.6-1.3); POTASSIUM 4.2 mmol/L (3.5-5.1)
--- NOTE | 2022-08-16 21:30 | NUR ---
RN NOTE REPEAT NA 122. REPORTED TO DR. BEATTY. PER TO STOP 3% NS AND RECHECK SODIUM IN AM. WILL CONTINUE TO MONITOR.
[2022-08-17 04:00] VITALS: BP 111/57
[2022-08-17] MEDS: ACETAMINOPHEN 325 MG TABLET PO PRN ×2 (04:41→20:48)
[2022-08-17] MEDS: LORAZEPAM INJ 2 MG/ML VIAL IV PRN ×3 (06:01→20:46)
--- NOTE | 2022-08-17 06:07 | NUR ---
RN NOTE PT ANXIOUS, REQUESTED FOR ATIVAN. GIVEN ORDERED. WILL CONTINUE TO MONITOR
--- NOTE | 2022-08-17 06:51 | NUR ---
RN NOTE PT SLEEPING, AROUSES EASILY. DENIES ANY PAIN. NOT IN ANY DISTRESS. PT ABLE TO MAKE NEEDS KNOWN. AMBULATORY. COMPLIANT TO FLUID RESTRICTION. NEEDS ATTENDED. WILL ENDORSE TO AM SHIFT NURSE FOR PANTERA
[2022-08-17 06:57] LABS: BASOPHILS % (AUTO) 0.6 % (0.0-2.0); EOSINOPHILS % (AUTO) 2.3 % (0.0-6.0); HEMATOCRIT 38 % (33-45); LYMPHOCYTES # (AUTO) 1.7 K/uL (0.8-4.8); LYMPHOCYTES % (AUTO) 26.9 % (20.0-44.0); MEAN CORPUSCULAR HGB CONC 34 g/dl (31.0-36.0); MEAN CORPUSCULAR VOLUME 98 fL (82-100); MONOCYTES # (AUTO) 0.6 K/uL (0.1-1.30); MONOCYTES % (AUTO) 10.1 % (2.0-12.0); NEUTROPHILS # (AUTO) 3.7 K/uL (1.8-8.9); NEUTROPHILS % (AUTO) 60.1 % (43.0-81.0); PLATELET COUNT (AUTO) 353 K/uL (150-450); WHITE BLOOD COUNT (AUTO) 6.2 K/uL (4.3-11.0)
[2022-08-17] MEDS: PANTOPRAZOLE 40 MG TABLET.DR PO SCH (07:34)
[2022-08-17 07:58] LABS: ALBUMIN 3.3 g/dL (3.4-5.0); BILIRUBIN,TOTAL 0.2 mg/dL (0.2-1.0); MAGNESIUM 2.2 mg/dL (1.8-2.4); PHOSPHORUS 4.8 mg/dL (2.5-4.9); POTASSIUM 4.5 mmol/L (3.5-5.1); TOTAL PROTEIN, SERUM 7.1 g/dL (6.4-8.2)
[2022-08-17 08:00] VITALS: BP 106/61
[2022-08-17] MEDS: CEFTRIAXONE 1 G in IV D5W 50 ML IV SCH (08:21)
[2022-08-17] MEDS: FOLIC ACID 1 MG TABLET PO SCH (08:21)
[2022-08-17] MEDS: SODIUM CHLORIDE 1000 MG TABLET PO SCH (08:21)
[2022-08-17] MEDS: ALPRAZOLAM 1 MG TABLET PO SCH ×2 (08:22→17:24)
[2022-08-17] MEDS: THIAMINE HCL 100 MG TABLET PO SCH (08:22)
--- NOTE | 2022-08-17 11:22 | NUR ---
RN NOTE RECEIVED PT ASLEEP BUT AROUSABLE, ALERT AND ORIENTED. DENIED ANY HEADACHE,DENIED ANY PAIN OR DISCOMFORT, RAC IV PATENT AND INTACT. PT ON FLUID RESTRICTION DUE TO HYPONATREMIA, PT AWARE. ALL SAFETY MEASURES IN PLACE. WILL CONTINUE TO MONITOR.
[2022-08-17] MEDS: HYDROCODONE/APAP 5/325MG TABLET PO PRN ×2 (12:23→18:57)
[2022-08-17 16:00] VITALS: BP 103/55
--- NOTE | 2022-08-17 19:20 | NUR ---
RN NOTE PATIENT REMAINS ALERT ORIENTED X4 VERBALLY RESPONSIVE,ON ROOM AIR O2:100% IV SITE IS ON RIGHT FOREARM INTACT PATENT,AMBULATORY,CONTINENT BOWEL/BLADDER,ALL DUE MED GIVEN MD ORDERED,KEPT HEAD OF THE BED ELEVATED ALL THE TIME,KEPT COMFORTABLE.RECEIVED NORCO FOR HEADACHE AROUND 1900 WILL ENDORSE NEXT COMING SHIFT FOR CONTINUATION OF CARE.
[2022-08-17 20:00] VITALS: BP 98/52
--- NOTE | 2022-08-17 20:22 | NUR ---
RN NOTE PT AWAKE, AOX4. MILD HEADACHE, BEARABLE. DENIES ANY NAUSEA AND VOMITING, NOT IN ANY DISTRESS. ALL SAFETY MEASURES IN PLACE PER PROTOCOL. WILL CONTINUE TO MONITOR.
[2022-08-18] MEDS: HYDROCODONE/APAP 5/325MG TABLET PO PRN (01:13)
[2022-08-18 04:00] VITALS: BP 100/42
[2022-08-18] MEDS: LORAZEPAM INJ 2 MG/ML VIAL IV PRN (04:27)
--- NOTE | 2022-08-18 06:56 | NUR ---
RN NOTE PT SLEEPING, AROUSES EASILY. DENIES ANY PAIN AT THIS TIME. NOT IN ANY DISTRESS. PT ABLE TO MAKE NEEDS KNOWN. GETS ANXIOUS AT TIMES, RELIEVED BY ATIVAN. AMBULATORY. COMPLIANT TO FLUID RESTRICTION. NEEDS ATTENDED. WILL ENDORSE TO AM SHIFT NURSE FOR PANTERA
[2022-08-18 07:30] LABS: CALCIUM, SERUM 9.2 mg/dL (8.5-10.1); CREATININE 0.8 mg/dL (0.6-1.3); POTASSIUM 4.3 mmol/L (3.5-5.1)
[2022-08-18] MEDS: PANTOPRAZOLE 40 MG TABLET.DR PO SCH (07:47)
--- NOTE | 2022-08-18 07:48 | NUR ---
RN OPENING NOTE: PATIENT AWAKE, REMAINS ALERT ORIENTED X4 VERBALLY RESPONSIVE,ON ROOM AIR NO SOB NOTED, RESPIRATION EVEN AND UNLABORED, NOT IN DISTRESS AT THIS MOMENT. DENIES ANY PAIN. IV SITE IS ON RIGHT FOREARM INTACT PATENT,AMBULATORY,CONTINENT BOWEL/BLADDER. CALL LIGHT WITHIN REACH. BED IN LOWEST POSITION. WILL CONTINUE PLAN OF CARE.
[2022-08-18] MEDS: THIAMINE HCL 100 MG TABLET PO SCH (08:04)
[2022-08-18] MEDS: FOLIC ACID 1 MG TABLET PO SCH (08:04)
[2022-08-18] MEDS: SODIUM CHLORIDE 1000 MG TABLET PO SCH (08:04)
[2022-08-18] MEDS: ALPRAZOLAM 1 MG TABLET PO SCH ×2 (08:05→16:14)
[2022-08-18] MEDS: CEFTRIAXONE 1 G in IV D5W 50 ML IV SCH (08:05)
[2022-08-18 14:00] VITALS: BP 129/58
--- NOTE | 2022-08-18 15:35 | NUR ---
RN NOTED PATIENT ALERT AND VERBALLY RESPONSIVE. DENIES ANY PAIN AT THIS MOMENT. DISCHARGE INSTRUCTIONS GIVEN TO THE PATIENT. CONFIRMED UNDERSTANDING, ALL DISCHARGE PAPER WORKS SIGNED BY PATIENT, PERSONAL BELONGINGS PAPER SIGNED BY PATIENT. IV PERIPHERAL REMOVED. PATIENT WAITING FOR TRANSPORTATION.
--- NOTE | 2022-08-18 16:27 | NUR ---
RN NOTES PATIENT EXITED THE HOSPITAL STABLE AT 1625H TAKE ALL PERSONAL BELONGINGS. IV REMOVED AND ID BAND.
== END 2022-08-18 16:00 | disposition home or self-care (01) | DRG 55 ==
LOC: ER 19:21 → TELE-TD 08-12 08:02 → MEDSG1 08-12 11:52
DX: S06.4X0A Epidural hemorrhage without loss of consciousness, initial encounter (principal); E87.1 Hypo-osmolality and hyponatremia; S02.82XA Fracture of other specified skull and facial bones, left side, initial encounter for closed fracture; W10.9XXA Fall (on) (from) unspecified stairs and steps, initial encounter; Y92.89 Other specified places as the place of occurrence of the external cause; Y90.9 Presence of alcohol in blood, level not specified; F31.9 Bipolar disorder, unspecified; Z20.822 Contact with and (suspected) exposure to COVID-19; F41.1 Generalized anxiety disorder; F41.0 Panic disorder [episodic paroxysmal anxiety]; Y04.0XXA Assault by unarmed brawl or fight, initial encounter; Y04.2XXA Assault by strike against or bumped into by another person, initial encounter; E88.09 Other disorders of plasma-protein metabolism, not elsewhere classified; E87.6 Hypokalemia; Z88.8 Allergy status to other drugs, medicaments and biological substances; Z79.899 Other long term (current) drug therapy; F10.139 Alcohol abuse with withdrawal, unspecified; S06.5X0A Traumatic subdural hemorrhage without loss of consciousness, initial encounter
CPT/HCPCS: 36415; 70450-TC; 70486-TC; 80048-TC; 80053-TC; 80076-TC; 81001; 82570-TC; 83690-TC; 83735-TC; 84100-TC; 84300-TC; 84439-TC; 84443-TC; 84703-TC; 85025-TC; 85610-TC; 85730-TC; 87081-TC; 87086-TC; C9113; C9803; G0378; J0696; J2060; J2270; J2405; J3411; J3490; J7030; J7042; J7050; J7060; J7070; Q0163

== ENCOUNTER 2022-08-21 04:56 | Emergency (ER) | payer OTHER ==
[~2022-08-21] VITALS: Ht 165.1 cm; Wt 49.9 kg
[~2022-08-21 04:56] MED LIST changes: +ALPR1TAB2 PO; -CETI-90 PO; -CHLO25CA22 PO; -EPIN0.3P3 IM; -FAMO-131 PO; -HYDR-4209 PO; -IBUP-1957 PO; -LORA-259 PO; -ONDA4TAB5 PO; -PRED20TA PO
--- NOTE | 2022-08-21 05:18 | NUR ---
PATIENT SIMI [id number] FROM HOME FOR C/O ONGOING HEADACHE. WAS DISCHARGED FROM [facility] ON THE . PT IS A/O X 4 RR EVEN AND UNLABORED NO SOB NOTED. PT TAKEN TO ER BED TEN. PATIENT CONNECTED TO MONITORS. NO ACUTE DISTRESS NOTED.
[2022-08-21] MEDS ORDERED: oxyCODONE/APAP (5/325 MG) 1 UDTAB TABLET PO ONE (05:30)
[2022-08-21] MEDS ORDERED: oxyCODONE/APAP (5/325 MG) 1 UDTAB TABLET ONE (05:34)
[2022-08-21 05:56] LABS: BASOPHILS % (AUTO) 0.5 % (0.0-2.0); EOSINOPHILS % (AUTO) 2.2 % (0.0-6.0); HEMATOCRIT 41 % (33-45); LYMPHOCYTES # (AUTO) 1.3 K/uL (0.8-4.8); LYMPHOCYTES % (AUTO) 26.2 % (20.0-44.0); MEAN CORPUSCULAR HGB CONC 35 g/dl (31.0-36.0); MEAN CORPUSCULAR VOLUME 97 fL (82-100); MONOCYTES # (AUTO) 0.5 K/uL (0.1-1.30); MONOCYTES % (AUTO) 9.2 % (2.0-12.0); NEUTROPHILS # (AUTO) 3.2 K/uL (1.8-8.9); NEUTROPHILS % (AUTO) 61.9 % (43.0-81.0); PLATELET COUNT (AUTO) 396 K/uL (150-450); RED BLOOD CELL COUNT(AUTO) 4.19 MIL/uL (4.0-5.2); WHITE BLOOD COUNT (AUTO) 5.1 K/uL (4.3-11.0)
[2022-08-21 06:13] LABS: CALCIUM, SERUM 8.7 mg/dL (8.5-10.1); CREATININE 0.7 mg/dL (0.6-1.3); POTASSIUM 3.9 mmol/L (3.5-5.1)
--- NOTE | 2022-08-21 06:15 | NUR ---
urine sent to lab
--- NOTE | 2022-08-21 06:50 | NUR ---
patient taken to ct
[2022-08-21 07:30] VITALS: BP 116/75
[2022-08-21] MEDS ORDERED: HYDR-3980 PO ×2 (07:41→09:23)
[2022-08-22] MEDS ORDERED: CHLO25CA22 PO (23:46)
[2022-08-22] MEDS ORDERED: ONDA4TAB5 PO (23:46)
== END 2022-08-21 07:52 | disposition home or self-care (01) ==
LOC: ER 04:58
DX: S00.03XD Contusion of scalp, subsequent encounter (principal); Z88.8 Allergy status to other drugs, medicaments and biological substances; X58.XXXD Exposure to other specified factors, subsequent encounter
CPT/HCPCS: 36415; 70450-TC; 80048-TC; 84702-TC; 84703-TC; 85025-TC; 85730-TC

== ENCOUNTER 2022-08-22 22:05 | Emergency (ER) | payer OTHER ==
[~2022-08-22] VITALS: Ht 152.4 cm; Wt 49.9 kg
[~2022-08-22 22:05] MED LIST changes: +HYDR-3980 PO
--- NOTE | 2022-08-22 22:35 | NUR ---
URINE COLLECTED AND SENT TO LAB
[2022-08-22 23:00] LABS: BASOPHILS % (AUTO) 0.4 % (0.0-2.0); EOSINOPHILS % (AUTO) 0.1 % (0.0-6.0); HEMATOCRIT 38 % (33-45); LYMPHOCYTES # (AUTO) 1.1 K/uL (0.8-4.8); LYMPHOCYTES % (AUTO) 10.3 % (20.0-44.0); MEAN CORPUSCULAR HGB CONC 34 g/dl (31.0-36.0); MEAN CORPUSCULAR VOLUME 96 fL (82-100); MONOCYTES # (AUTO) 0.7 K/uL (0.1-1.30); MONOCYTES % (AUTO) 6.3 % (2.0-12.0); NEUTROPHILS # (AUTO) 8.7 K/uL (1.8-8.9); NEUTROPHILS % (AUTO) 82.9 % (43.0-81.0); PLATELET COUNT (AUTO) 466 K/uL (150-450); RED BLOOD CELL COUNT(AUTO) 3.96 MIL/uL (4.0-5.2); WHITE BLOOD COUNT (AUTO) 10.5 K/uL (4.3-11.0)
[2022-08-22] MEDS ORDERED: IV NS 0.9% 1,000 ML BAG IV ONE (23:00)
[2022-08-22] MEDS ORDERED: ONDANSETRON HCL/PF 4 MG/2 ML VIAL IVP ONE (23:00)
[2022-08-22 23:04] LABS: CALCIUM, SERUM 9.3 mg/dL (8.5-10.1); CREATININE 0.8 mg/dL (0.6-1.3)
[2022-08-22] MEDS ORDERED: ONDANSETRON HCL/PF 4 MG/2 ML VIAL ONE (23:06)
[2022-08-22 23:12] LABS: ALBUMIN 3.9 g/dL (3.4-5.0); BILIRUBIN,DIRECT 0.2 mg/dL (0.0-0.2); BILIRUBIN,TOTAL 0.8 mg/dL (0.2-1.0); TOTAL PROTEIN, SERUM 7.7 g/dL (6.4-8.2)
--- NOTE | 2022-08-22 23:36 | NUR ---
IV CANNULA G20 INSERTED ON LEFT AC. IVF STARTED AND IV MEDS GIVEN
[2022-08-22 23:42] LABS: BILIRUBIN,URINE NEGATIVE (NEGATIVE); COLOR,URINE YELLOW (YELLOW); LEUKOCYTE ESTERASE ,URINE NEGATIVE (NEGATIVE); NITRITE, URINE NEGATIVE (NEGATIVE); PROTEIN,URINE NEGATIVE (NEGATIVE); UGLUCOSE NEGATIVE (NEGATIVE); UROBILINOGEN,URINE 0.2 EU/dL (0.2)
[2022-08-22] MEDS ORDERED: CHLO25CA22 PO (23:46)
[2022-08-22] MEDS ORDERED: ONDA4TAB5 PO (23:46)
[2022-08-23 00:11] LABS: BACTERIA,URINE Rare /HPF (None Seen); RBC,URINE 0-2 /HPF (0-2); SQUAMOUS EPITHELIAL CELL,UR Moderate /HPF (None Seen); WBC,URINE 0-2 /HPF (0-3)
--- NOTE | 2022-08-23 01:00 | NUR ---
IV CANNULA REMOVED.
--- NOTE | 2022-08-23 01:30 | NUR ---
Patient discharged to home in stable condition. Written and verbal after care instructions given. Patient verbalizes understanding of instruction.
[2022-08-23 04:00] VITALS: BP 101/59
== END 2022-08-23 04:00 | disposition home or self-care (01) ==
LOC: ER 22:06
DX: R11.2 Nausea with vomiting, unspecified (principal); F19.10 Other psychoactive substance abuse, uncomplicated; R51.9 Headache, unspecified; Z88.8 Allergy status to other drugs, medicaments and biological substances; Z79.899 Other long term (current) drug therapy
CPT/HCPCS: 99285; 96374; 96361; 93005; 70450; 85025; 80048; 83690; 80076; 81001; 36415; 85730; 80320; 80307; J2405; J7030; G0480

== ENCOUNTER 2022-08-30 06:00 | Emergency (ER) | payer OTHER ==
[~2022-08-30] VITALS: Ht 152.4 cm; Wt 49.9 kg
[~2022-08-30 06:00] MED LIST changes: +CHLO25CA22 PO; +ONDA4TAB5 PO
--- NOTE | 2022-08-30 06:05 | NUR ---
SIMI 839 FROM HOME FOR C/O H/A S/O SLIP AND FALL. NO KO. PT AAOX4, DENIES SOB/CP. VSS. PENDING ER PROVIDER EMILIANO
[2022-08-30] MEDS ORDERED: CHLO25CA22 PO (06:40)
--- NOTE | 2022-08-30 06:49 | NUR ---
back from ct
--- NOTE | 2022-08-30 07:09 | NUR ---
Patient discharged to home in stable condition. Written and verbal after care instructions given. Patient verbalizes understanding of instruction.
[2022-08-30 07:10] VITALS: BP 131/75
== END 2022-08-30 07:10 | disposition home or self-care (01) ==
LOC: ER 06:02
DX: F10.10 Alcohol abuse, uncomplicated (principal); F19.10 Other psychoactive substance abuse, uncomplicated; R51.9 Headache, unspecified; F41.9 Anxiety disorder, unspecified; Z88.8 Allergy status to other drugs, medicaments and biological substances; Z79.899 Other long term (current) drug therapy; Y90.9 Presence of alcohol in blood, level not specified
CPT/HCPCS: 70450-TC

== ENCOUNTER 2022-09-05 22:27 | Emergency (ER) | payer OTHER ==
[~2022-09-05] VITALS: Ht 152.4 cm; Wt 49.9 kg
--- NOTE | 2022-09-05 22:44 | NUR ---
ofcr margie, abdi barron in facility for police report
[2022-09-05] MEDS ORDERED: IBUPROFEN 400 MG TABLET ONE (22:53)
--- NOTE | 2022-09-05 22:56 | NUR ---
DISCLAIMER FOR NOT BEING SIGNED BY PT
--- NOTE | 2022-09-05 22:59 | NUR ---
BROUGHT TO CT DEPT
[2022-09-05] MEDS ORDERED: IBUPROFEN 400 MG TABLET PO ONE (23:00)
--- NOTE | 2022-09-06 00:09 | NUR ---
Patient discharged to home in stable condition. Written and verbal after care instructions given. Patient verbalizes understanding of instruction.
[2022-09-06 00:18] VITALS: BP 102/66
== END 2022-09-06 00:19 | disposition home or self-care (01) ==
LOC: ER 22:30
DX: S09.90XA Unspecified injury of head, initial encounter (principal); M79.632 Pain in left forearm; M79.631 Pain in right forearm; F41.9 Anxiety disorder, unspecified; Z88.8 Allergy status to other drugs, medicaments and biological substances; Z79.899 Other long term (current) drug therapy; Y08.89XA Assault by other specified means, initial encounter; Y93.89 Activity, other specified; Y92.89 Other specified places as the place of occurrence of the external cause; Y99.8 Other external cause status
CPT/HCPCS: 70360-TC; 70450-TC; 73090-TC

== ENCOUNTER 2022-12-05 10:31 | Emergency (ER) | payer OTHER ==
[~2022-12-05] VITALS: Ht 154.9 cm; Wt 46.7 kg
--- NOTE | 2022-12-05 10:35 | NUR ---
REceived pt 27 yrs female came by blanca c/o FREQUNTE SEIZURE YESTERDAY AND LAST WEEK NO ACTIVE SZ AT THIS TIME
[2022-12-05] MEDS ORDERED: LORAZEPAM INJ 2 MG/ML VIAL ONE (10:59)
[2022-12-05] MEDS ORDERED: LORAZEPAM INJ 2 MG/ML VIAL IM ONE (11:00)
[2022-12-05] MEDS ORDERED: OLANZAPINE 10 MG VIAL IM ONE ×3 (11:00→11:02)
--- NOTE | 2022-12-05 11:00 | NUR ---
BLOOD DROW BY LAB AND
--- NOTE | 2022-12-05 11:05 | NUR ---
UA SENT TO LAB
--- NOTE | 2022-12-05 11:20 | NUR ---
TO CT SCAN OF HEAD VIA TESSY
--- NOTE | 2022-12-05 11:42 | NUR ---
Patient eloped from facility. ER MD notified.
--- NOTE | 2022-12-05 11:46 | NUR ---
MOTHER NAJERA KIMO PT WALKING OUT
[2022-12-05 11:48] LABS: BILIRUBIN,URINE 1+ (NEGATIVE); COLOR,URINE DARK YELLOW (YELLOW); LEUKOCYTE ESTERASE ,URINE NEGATIVE (NEGATIVE); NITRITE, URINE NEGATIVE (NEGATIVE); PH,URINE 5.5 (5.0-8.0); PROTEIN,URINE TRACE mg/dl (NEGATIVE); UGLUCOSE NEGATIVE (NEGATIVE); UROBILINOGEN,URINE 0.2 EU/dL (0.2)
[2022-12-05 11:48] LABS: BASOPHILS % (AUTO) 0.3 % (0.0-2.0); HEMATOCRIT 34 % (33-45); HEMOGLOBIN 11.5 g/dL (11.5-14.8); LYMPHOCYTES # (AUTO) 1.7 K/uL (0.8-4.8); MEAN CORPUSCULAR HGB CONC 33 g/dl (31.0-36.0); MEAN CORPUSCULAR VOLUME 99 fL (82-100); MONOCYTES # (AUTO) 0.7 K/uL (0.1-1.30); MONOCYTES % (AUTO) 9.7 % (2.0-12.0); NEUTROPHILS # (AUTO) 5.1 K/uL (1.8-8.9); PLATELET COUNT (AUTO) 249 K/uL (150-450); RED BLOOD CELL COUNT(AUTO) 3.47 MIL/uL (4.0-5.2); WHITE BLOOD COUNT (AUTO) 7.7 K/uL (4.3-11.0)
[2022-12-05 11:49] LABS: CALCIUM, SERUM 9.4 mg/dL (8.5-10.1); CARBON DIOXIDE 25 mmol/L (21-32); CHLORIDE 102 mmol/L (98-107); CREATININE 0.8 mg/dL (0.6-1.3); GLUCOSE 103 mg/dL (74-106); POTASSIUM 3.7 mmol/L (3.5-5.1); SODIUM SERUM 139 mmol/L (136-145); UREA NITROGEN, BLOOD 10 mg/dL (7-18)
--- NOTE | 2022-12-05 11:50 | NUR ---
PT BACK SPOOK WITH MOTHER BY PHONE
[2022-12-05 11:55] LABS: ACETAMINOPHEN < 10 ug/ml (10-30); ALANINE AMINOTRANSFERASE 19 U/L (12-78); ALBUMIN 3.8 g/dL (3.4-5.0); ALCOHOL, BLOOD < 3 mg/dL (0-0); ALKALINE PHOSPHATASE 80 U/L (46-116); ASPARTATE AMINOTRANSFERASE 19 U/L (15-37); BILIRUBIN,DIRECT 0.2 mg/dL (0.0-0.2); BILIRUBIN,TOTAL 0.5 mg/dL (0.2-1.0); TOTAL PROTEIN, SERUM 7.7 g/dL (6.4-8.2)
[2022-12-05 11:58] LABS: BACTERIA,URINE Few /HPF (None Seen); SQUAMOUS EPITHELIAL CELL,UR Many /HPF (None Seen)
--- NOTE | 2022-12-05 12:00 | NUR ---
CALLED SOCIALE WORKER TO SEE PT
--- NOTE | 2022-12-05 12:25 | NUR ---
JAZLYN WORKER AT BED SIDE SPOOKING WITH PT
--- NOTE | 2022-12-05 12:40 | NUR ---
SS Consult: SS Consult requested for Alcohol use. The pt. is a 27-year-old White female pt. who came into the ED due to seizure per EMR. Upon SS consult, the pt. is Alert & Oriented x 4 and makes good eye contact. The pt. appears unkempt. Pt. has anxious mood & affect. Pt.s speech is low and clear. Pt. was cooperative throughout interview and presents guarded. The pt. denies SI/HI and denies hallucinations. The pt. is no longer confused as reported by MD Note. Confusion may have been secondary to seizure per MD. JENNIFER explored pt.s living situation. Patient states she is currently residing in an [facility] with her boyfriend. Per pt. she couldnt provide address. JENNIFER explored pt.s mental health Hx. Pt. states she has a Hx. of anxiety & depression and has been prescribed Xanax by a psychiatrist, Dr. Emery who pt. regularly had zoom appointments with. JENNIFER explored pt.s drug & ETOH use. Pt. states she uses cannabinoids, and it is not a problem for her. Pt. states she also uses alcohol about 3 times/week and drinks beer. Per pt. she has been drinking heavily for about 4 years and used to drink liquor daily. Per pt. she went to [facility] residential rehab about 7 months ago and was in rehab for about 3 months and sober for 4 months total. Per pt. she is in Intensive outpatient services still with [facility] for 3x/week for 3.5 hours. Plan: Per pt. she would like to return to her [facility] where she lives with her boyfriend. Per pt. her mother, Amy Gutierrez [phone] would be able to pick her up when ready for discharge. JENNIFER provided pt. with the following addiction resources and pt. accepted them: ADDICTION RESOURCES For Drugs and Alcohol [facility] sober living Referrals For Rehabilitation once sober Address:[address] [place] [address] [facility] Rehabilitation Program [address] [place] [address] Detox/residential [facility] Substance Abuse Helpline ([facility]) Outpatient, residential treatment, recovery support for youth/adults [facility] www.VeriTweetdana-[facility] cancer institutelycounseling.Repros [employer]rapeutics [facility] Teen programs for drug/alcohol education and support Nandini Ward [place]. Program for adults, sliding scale provides support and education [facility] www.ams AGIvyDateation.org [place]; Detox/residential treatment programs; transition to sober living [facility] www.cri-help.org [place]; Outpatient and residential treatment programs; transition to sober living [facility] TEL: [phone] I-[facility] [place] [place]; Outpatient education and supportive programs for teens and adults [place] [facility] www.[facility].org [place]; Residential treatment and work program for females only [facility] www.[facility].SafedoX [place]: Outpatient/residential treatment program for teens and young adults [facility] www.[facility].org [facility] Detox, inpatient, outpatient for adults and youth [facility], [facility]. [facility]; Outpatient programs and referrals to community residential programs. Alcoholics Anonymous -SFV information and meeting and scheduleswww.aa-intergroup.org [place] https://al-anon.org/ [place] support groups for family of alcoholics. Marijuana Anonymous www.madistrict6.org -SFV listing of meetings Narcotics Anonymous www.na.org SOBER LIVING RESOURCES [facility] www.soberhouALENTYg.net A non-profit agency that provides resources to recovery and sober living homes throughout [facility] Sober Living Homes: A Work in ProgressSherine Tamara Rodríg[facility], [place] [facility] Womens Sober Living Homes: [facility] x [phone] My New BeginningADRIANA [facility] Sober Living Homes: [facility] Counseling--Outpatient [facility] [address], [place] [address] (Specializes in in-depth psychotherapy for emotional distress: anxiety, depression, interpersonal conflicts, life transitions, childhood abuse) [facility] [address] [place] [address] (Assist with solving problem marital difficulties, separation & divorce, aging parents, & grief, chronic & terminal illness) [facility] [address] [place] [address] (Deal with loss & grief, anxiety, marital difficulties) Homebound/Mental Health Services [address] [facility], [address] [place] [address] (Provide in-home mental services to people who are incapable of leaving their homes) [facility] for Needs of the Elderly Senior Service/Resource Center [address] [place] [address] [facility] [address] [place] [address] Mental Health Services Saima Moran [address] [place] [address] Services: Outpatient therapy for children, teens, young adults, adults, older adults, and families; Psychiatric services, medication support Psychiatric Outpatient Services [facility] Partial Hospitalization and Intensive Outpatient Program (Managed Care and [place] Only)[address] [facility] [facility] [phone] [facility] Partial Hospitalization and Outpatient [id number] [facility]. [address] [place], [place] [phone] [facility] [id number] Lisa [facility]. [address] [place], [place] [phone] [facility] Partial Hospitalization and Outpatient [id number] Harvinder Saleem, [phone] Crisis and Hotline Telephone Numbers 24-Hour service unless stated [place] Crisis Hotlines: [facility] Mental Health/Crisis Line........650.679.4253 Suicide Prevention Center (24 Hours).......696.729.1335 Suicide Prevention Crisis Center.......766.293.6394 (24 Hours) Assaults Against Women Hotline.........354.211.5410 (24 Hours -- [facility]) Women and Children Crisis Long Term...........[phone] (24 Hours) Child Abuse Hotline............939.143.9025 [facility] (24 Hours)..........391.389.1455 Alcoholics Anonymous (24 Hours)..........211.396.1323 Cocaine Anonymous (24 Hours)............670.446.6745 Narcotics Anonymous (24 Hours)..........197.284.2657 Crystal Fernandez [facility] [address], [place] [address]
[2022-12-05] MEDS ORDERED: OLAN5TAB3 PO (12:45)
--- NOTE | 2022-12-05 12:50 | NUR ---
NO ACTIVE SZ LOOKS BEATER TOLORATED PO INTACK NO N/V
--- NOTE | 2022-12-05 13:08 | NUR ---
Patient discharged to home in stable condition. Written and verbal after care instructions given. Patient verbalizes understanding of instruction.
[2022-12-05 13:26] VITALS: BP 128/77
== END 2022-12-05 13:39 | disposition home or self-care (01) ==
LOC: ER 10:33
DX: S00.83XA Contusion of other part of head, initial encounter (principal); F29 Unspecified psychosis not due to a substance or known physiological condition; F12.10 Cannabis abuse, uncomplicated; R25.1 Tremor, unspecified; F41.9 Anxiety disorder, unspecified; Z88.8 Allergy status to other drugs, medicaments and biological substances; Z79.899 Other long term (current) drug therapy; X58.XXXA Exposure to other specified factors, initial encounter; Y93.89 Activity, other specified; Y92.89 Other specified places as the place of occurrence of the external cause; Y99.8 Other external cause status
CPT/HCPCS: 99285; 96372 ×2; 70450; 85025; 80048; 80076; 81001; 36415; 80143; 80320; 80307; J2060; J3490; G0480

== ENCOUNTER 2024-03-29 08:52 | Emergency (ER) | payer OTHER ==
[~2024-03-29] VITALS: Ht 152.4 cm; Wt 49.9 kg
[~2024-03-29 08:52] MED LIST changes: +OLAN5TAB3 PO
[2024-03-29] MEDS ORDERED: CEFTRIAXONE 1 G VIAL ONE (10:00)
[2024-03-29] MEDS ORDERED: IBUPROFEN 600 MG TABLET ONE (10:00)
[2024-03-29] MEDS ORDERED: CHLORDIAZEPOXIDE HCL 25 MG CAPSULE ONE (10:00)
[2024-03-29] MEDS ORDERED: LIDOCAINE /MPF 1% VIAL 5 ML VIAL ONE (10:01)
[2024-03-29] MEDS ORDERED: CLIN300C12 PO (10:13)
[2024-03-29] MEDS: CEFTRIAXONE 1 G VIAL IM ONE (10:13)
[2024-03-29] MEDS ORDERED: IBUP-1953 PO (10:13)
[2024-03-29] MEDS: IBUPROFEN 600 MG TABLET PO ONE (10:13)
[2024-03-29] MEDS: CHLORDIAZEPOXIDE HCL 25 MG CAPSULE PO ONE (10:14)
[2024-03-29 10:25] VITALS: BP 112/67; TEMP 98; O2SAT 98
== END 2024-03-29 10:25 | disposition home or self-care (01) ==
LOC: ER 09:09
DX: L03.115 Cellulitis of right lower limb (principal); F41.9 Anxiety disorder, unspecified; Z88.8 Allergy status to other drugs, medicaments and biological substances; Z79.899 Other long term (current) drug therapy
CPT/HCPCS: 99283; 96372; J0696; J3490

== ENCOUNTER 2025-07-08 22:15 | Emergency (ER) | payer MEDICAID, OTHER ==
[~2025-07-08] VITALS: Ht 154.9 cm; Wt 43.1 kg
[~2025-07-08 22:15] MED LIST changes: +CLIN300C12 PO; +IBUP-1953 PO
[2025-07-08 22:31] VITALS: TEMP 98.6
[2025-07-08] MEDS ORDERED: KETO200T15 PO (22:44)
[2025-07-08 22:53] VITALS: BP 117/70; O2SAT 99
== END 2025-07-08 22:53 | disposition home or self-care (01) ==
LOC: ER 22:19
DX: B36.0 Pityriasis versicolor (principal); F41.9 Anxiety disorder, unspecified; F19.10 Other psychoactive substance abuse, uncomplicated; Z88.8 Allergy status to other drugs, medicaments and biological substances; Z79.899 Other long term (current) drug therapy; Z86.69 Personal history of other diseases of the nervous system and sense organs

== ENCOUNTER 2025-07-23 10:49 | Emergency (ER) | payer MEDICAID ==
[~2025-07-23] VITALS: Ht 154.9 cm; Wt 46.3 kg
[~2025-07-23 10:49] MED LIST changes: +KETO200T15 PO
[2025-07-23 11:09] LABS: PLATELET COUNT (AUTO) 315 K/uL (150-450); RED BLOOD CELL COUNT(AUTO) 4.59 MIL/uL (4.0-5.2); RED CELL DISTRIBUTION WIDTH 12.9 % (11.5-15.0); WHITE BLOOD COUNT (AUTO) 10.0 K/uL (4.3-11.0)
[2025-07-23 11:19] LABS: APPEARANCE,URINE CLEAR (CLEAR); BLOOD, URINE Large Ery/uL (NEGATIVE); LEUKOCYTE ESTERASE ,URINE Trace (NEGATIVE); NITRITE, URINE NEGATIVE (NEGATIVE); UGLUCOSE Negative (NEGATIVE)
[2025-07-23 11:20] LABS: CALCIUM, SERUM 8.6 mg/dL (8.5-10.1); CREATININE 0.6 mg/dL (0.6-1.3); SODIUM SERUM 138 mmol/L (136-145); UREA NITROGEN, BLOOD 17 mg/dL (7-18)
[2025-07-23 11:21] LABS: PREGNANCY TEST URINE QUAL NEGATIVE (NEGATIVE)
[2025-07-23 11:26] LABS: ASPARTATE AMINOTRANSFERASE 16 U/L (15-37); TOTAL PROTEIN, SERUM 7.1 g/dL (6.4-8.2)
[2025-07-23 11:32] LABS: AMPHETAMINE, URINE POSITIVE (NEGATIVE); BARBITURATE, URINE NEGATIVE (NEGATIVE); BENZODIAZEPINE, URINE POSITIVE (NEGATIVE); CANNABINOID, URINE NEGATIVE (NEGATIVE); COCCAINE, URINE NEGATIVE (NEGATIVE); OPIATE, URINE NEGATIVE (NEGATIVE)
[2025-07-23 11:35] LABS: ADD URINE CULTURE NO; SQUAMOUS EPITHELIAL CELL,UR Few /HPF (None Seen)
[2025-07-23 12:39] VITALS: BP 95/65; TEMP 98.1; O2SAT 99
== END 2025-07-23 12:39 | disposition home or self-care (01) ==
LOC: ER 11:00
DX: F19.10 Other psychoactive substance abuse, uncomplicated (principal); R55 Syncope and collapse; F41.9 Anxiety disorder, unspecified; R06.02 Shortness of breath; Z79.899 Other long term (current) drug therapy
CPT/HCPCS: 36415; 71045-TC; 80048-TC; 80076-TC; 81001; 83880; 84484-TC; 84703-TC; 85025-TC

== ENCOUNTER 2025-07-23 16:38 | Emergency (ER) | payer MEDICAID ==
[~2025-07-23] VITALS: Ht 152.4 cm; Wt 45.4 kg
[2025-07-23 16:56] VITALS: TEMP 98.4
[2025-07-23 18:02] VITALS: BP 118/63; O2SAT 99
== END 2025-07-23 18:02 | disposition home or self-care (01) ==
LOC: ER 16:42
DX: F15.10 Other stimulant abuse, uncomplicated (principal); F11.10 Opioid abuse, uncomplicated; F16.10 Hallucinogen abuse, uncomplicated; F41.9 Anxiety disorder, unspecified; Z79.899 Other long term (current) drug therapy